=== PATIENT | female | born 1950 | race Caucasian/White ===

== ENCOUNTER 2016-06-08 14:45 | Inpatient (IN) | payer OTHER ==
[~2016-06-08] VITALS: Ht 157.5 cm; Wt 75.8 kg
--- NOTE | ~2016-06-08 | WRIGHTHP ---
[place], [place] PATIENT HISTORY AND PHYSICAL EXAM NAME: JANELLE MOORE [facility] #: [id number] UNIT #: [id number] ROOM: 406 DOCTOR: GABO CRISTOBAL MD BIRTHDATE: [birth year] DOS: 06/09/2016 HISTORY OF PRESENT ILLNESS: A 65-year-old patient, very well known to us, had routine blood work yesterday and her hemoglobin was 6.5. She was sent to the hospital for transfusion and she was admitted for overnight blood transfusion. The patient does not have any complaints of chest pains, palpitations, shortness of breath. She does not have any fever or chills. Does not have any abdominal pain, any nausea, any emesis. PAST MEDICAL HISTORY: 1. Significant for chronic microcytic anemia requiring blood transfusions periodically. 2. History of colonoscopy, last one in 2014, which showed ischemic colitis and diverticulosis. 3. SLE. 4. Benign hypertension. 5. Chronic back pain. 6. Hypothyroidism. 7. Type 2 diabetes mellitus, insulin-dependent. MEDICATIONS: Clonidine 0.3 every Saturday, aspirin 81 daily, Dexilant 60 daily, duloxetine 60 daily, [place] 5 q. 4 p.r.n., Lamictal 100 b.i.d., levothyroxine 175 mcg daily, Robaxin 750 t.i.d., quinapril 40 daily, verapamil 240 b.i.d., insulin 20 units subQ at bedtime. SOCIAL HISTORY: Nonsmoker. Does not use any alcohol. PHYSICAL EXAMINATION: GENERAL: The patient is awake and alert and oriented, in no distress this morning. VITAL SIGNS: Graphic trend shows a blood pressure of 110/70, pulse of 86, respirations 14, afebrile. HEAD AND NECK: Within normal limits. LUNGS: Clear. HEART: Regular. ABDOMEN: Obese, soft, nontender. EXTREMITIES: Without any edema. LABORATORY DATA: At the time of admission was 6.5 hemoglobin, 23.8 hematocrit, ____ 74.8, platelets 253. Comprehensive: Glucose 134, BUN and creatinine normal. Electrolytes were normal. Iron is 15. ASSESSMENT AND PLAN: 1. Chronic iron deficiency anemia with low ferritin and a low iron level as well as a low folic acid. The patient is placed on iron supplements p.o. and did receive blood transfusion. May require iron injections as an outpatient. Right now p.o. supplements will be added. Her hemoglobin has come up after the 2 units of blood transfusion and she should be able to go home. The patient has declined a colonoscopy. She has had multiple colonoscopies in the past, the last one being 11/2014. [place], [place] PATIENT HISTORY AND PHYSICAL EXAM NAME: JANELLE MOORE UNIT #: [id number] ROOM: [facility] DOCTOR: GABO CRISTOBAL MD BIRTHDATE: [birth year] 2. Benign hypertension, controlled. 3. Systemic lupus erythematosus, followed by Rheumatology. No changes made in the medicines. GABO CRISTOBAL MD CM:HISPHYS:PATIENT HISTORY AND PHYSICAL EXAMINATION 1004 1040 GABO CRISTOBAL MD 06/09/16 1040 interface
[~2016-06-08 14:45] MED LIST changes: -ASPIRIN81 M1 PO; -DULOXETINE HCL60 MG PO; -HIGH POTENCY I134 MG PO; -NATURE'S BLEND F1 MG PO
[2016-06-08] MEDS ORDERED: DULOXETINE HCL60 MG PO (15:00)
[2016-06-08 15:35] LABS: HEMATOCRIT 23.8 % (37.0-47.0); HEMOGLOBIN 6.5 g/dl (12.0-16.0); MEAN CELL VOLUME 74.8 fl (81.0-99.0); MEAN CORPUSCULAR HGB 20.4 pg (27.0-31.0); MEAN CORPUSCULAR HGB CONC 27.3 g/dl (33.0-37.0); MEAN PLATELET VOLUME 9.9 fl (9.6-12.3); PLATELET COUNT AUTOMATED 253 10*3/uL (130-400); RED BLOOD COUNT 3.18 10*6/uL (4.10-5.10); RED CELL DISTRI WIDTH 16.8 % (0-14.5); RETICULOCYTE % 2.06 % (0.50-2.50); WHITE BLOOD COUNT 9.3 10*3/uL (4.8-10.8)
[2016-06-08 15:45] LABS: PROTHROMBIN TIME 10.1 SECONDS (9.0-12.4)
[2016-06-08 15:53] LABS: ALBUMIN 3.2 gm/dl (3.1-4.5); ALKALINE PHOSPHATASE 82 U/L (45-117); BUN 12 mg/dl (7-24); C-REACTIVE PROTEIN 0.43 MG/DL (0-0.3); CARBON DIOXIDE 29 mmol/L (21-32); CHLORIDE 103 mmol/L (98-107); CPK 46 U/L (26-192); EST GLOM FILT AFRICAN AMERICAN > 60 ml/min; GLUCOSE 134 mg/dL (65-99); IRON 15 ug/dL (50-170); IRON SATURATION 3 %; MAGNESIUM 2.2 mg/dL (1.5-2.1); POTASSIUM 4.4 mmol/L (3.5-5.1); SGOT/AST 10 IU/L (3-35); SGPT/ALT 15 U/L (12-78); SODIUM 140 mmol/L (136-145); TOTAL PROTEIN 6.7 gm/dL (6.4-8.2); UIBC 433 ug/dL (110-365)
[2016-06-08 15:54] LABS: BILIRUBIN, TOTAL 0.3 mg/dl (0.2-1.0); CKMB 1.8 ng/ml (0.5-3.6)
[2016-06-08 16:08] LABS: BASOPHILS 1 % (0-1); EOSINOPHILS 1 % (1-4); METAMYELOCYTES 1 % (0-0); MICROCYTOSIS SLIGHT; NEUTROPHILS 81 % (47-73); PLATELET SUFFICIENCY NORMAL (NORMAL); POLYCHROMASIA SLIGHT; STOMATOCYTE FEW; TOTAL CELLS COUNTED 100 #CELLS
[2016-06-08 16:09] LABS: HYPOCHROMIA MODERATE
[2016-06-08 16:10] LABS: IRF 22.6 % (2.4-13.3); RET-He 17.5 pg (32.1-37.9)
[2016-06-08 16:11] LABS: TROPONIN I 0.031 ng/ml (<0.045)
[2016-06-08 16:26] LABS: FERRITIN 3.8 ng/mL (10.0-291.0); FOLIC ACID 4.3 ng/mL (>5.38)
[2016-06-08] MEDS ORDERED: ASPIRIN81 M1 PO (23:59)
[2016-06-09 07:06] LABS: HEMATOCRIT 28.2 % (37.0-47.0)
[2016-06-09 07:07] LABS: HEMOGLOBIN 8.5 g/dl (12.0-16.0)
[2016-06-09] MEDS ORDERED: NATURE'S BLEND F1 MG PO (10:05)
[2016-06-09] MEDS ORDERED: HIGH POTENCY I134 MG PO (10:05)
== END 2016-06-09 09:32 | disposition home or self-care (01) | DRG 812 ==
LOC: ED 14:45 → EDHOLD 21:38 → 4E 22:35
PROVIDERS: Emergency Medicine; Internal Medicine
PROC: 30233N1 Transfusion of Nonautologous Red Blood Cells into Peripheral Vein, Percutaneous Approach (ICD-10-PCS; principal; 2016-06-08)
DX: D50.9 Iron deficiency anemia, unspecified (principal); M32.9 Systemic lupus erythematosus, unspecified; I10 Essential (primary) hypertension; G89.29 Other chronic pain; M54.9 Dorsalgia, unspecified; E03.9 Hypothyroidism, unspecified; E11.9 Type 2 diabetes mellitus without complications; Z79.4 Long term (current) use of insulin

== ENCOUNTER → 2016-06-08 | Outpatient (CLI) | payer OTHER ==
[~2016-06-08] MED LIST: ACCUPRIL20 MG PO; ACCUPRIL40 M1 PO; ACCUPRIL40 MG PO; ACTONEL150 MG; ANASPAZ0.125 MG; ANASPAZ0.125 MG PO; APA PO; ASPIR 8181 MG; ASPIRIN81 M1 PO; ASPIRIN81 MG PO; BACTRIM DS 8001 TA1 PO; BUFFERIN LOW DO81 M1 PO; CATAPRES T0.3 MG/24 TD; CATAPRES-TTS 30.3 MG PO; CIPRO500 MG PO; CLINDAMYCIN HC300 MG PO; CYMBALTA60 MG; CYMBALTA60 MG PO; DEXILANT60 M1 PO; DEXILANT60 MG PO; DITROPAN XL5 MG PO; DULOXETINE HCL60 MG PO; FERRATE325 MG PO; FLAGYL250 MG PO; FLAGYL500 MG; FLAGYL500 MG PO; Ferrex 150150 MG PO; Flagyl500 M1 PO; HIGH POTENCY I134 MG PO; HYDROCODONE BIT1 T11 PO; HYDROCODONE PO; IMURAN50 MG; IMURAN50 MG PO; LAMICTAL100 MG PO; LANTUS100 U/ML SC; MACROBID100 M1 PO; MERREM IV1 GM IV; METHOCARBAMOL750 MG; METHOCARBAMOL750 MG PO; MICRO-K10 MEQ PO; MILLIPRED5 MG PO; NATURE'S BLEND F1 MG PO; NITROFURANTOIN PO; PLAQUENIL200 MG PO; POLY IRON PN1 TAB PO; POTASSIUM CHLO10 ME4 PO; PREDNISONE1 MG PO; PREVACID30 MG; PYRIDIUM200 MG PO; QUINAPRIL20 MG; QUINAPRIL20 MG PO; ROBAXIN-750750 MG PO; SYNTHROID,LEV175 MCG PO; THYROX; VERAPAMIL HCL240 MG PO; VERELAN240 MG PO; VICODIN ES 7501 TAB PO; VICODIN HP 6601 TAB PO; VITAMIN D50000 I3 PO
[2016-06-08 13:00] LABS: BASO # 0.1 10*3/uL (0.0-0.1); BASO % 0.8 % (0.0-1.0); EOS # 0.2 10*3/uL (0.0-0.4); EOS % 1.5 % (1.0-4.0); HEMATOCRIT 24.1 % (37.0-47.0); HEMOGLOBIN 6.6 g/dl (12.0-16.0); LYMPH # 1.3 10*3/uL (1.3-4.4); LYMPH % 13.3 % (27.0-41.0); MEAN CELL VOLUME 75.3 fl (81.0-99.0); MEAN CORPUSCULAR HGB 20.6 pg (27.0-31.0); MEAN CORPUSCULAR HGB CONC 27.4 g/dl (33.0-37.0); MEAN PLATELET VOLUME 10.6 fl (9.6-12.3); MONO # 0.6 10*3/uL (0.1-1.0); MONO % 5.7 % (3.0-9.0); NEUT # 7.7 10*3/uL (2.3-7.9); NEUT % 78.3 % (47.0-73.0); PLATELET COUNT AUTOMATED 259 10*3/uL (130-400); RED CELL DISTRI WIDTH 16.6 % (0-14.5); WHITE BLOOD COUNT 9.9 10*3/uL (4.8-10.8)
== END | disposition home or self-care (01) ==
LOC: LAB 12:15
PROVIDERS: Internal Medicine
DX: D50.9 Iron deficiency anemia, unspecified (principal)

== ENCOUNTER → 2016-08-02 | Outpatient (CLI) | payer OTHER ==
[~2016-08-02] MED LIST changes: +ASPIRIN81 M1 PO; +DULOXETINE HCL60 MG PO; +HIGH POTENCY I134 MG PO; +NATURE'S BLEND F1 MG PO
[2016-08-02 15:38] LABS: BASO # 0.1 10*3/uL (0.0-0.1); BASO % 0.7 % (0.0-1.0); EOS # 0.1 10*3/uL (0.0-0.4); EOS % 0.8 % (1.0-4.0); HEMATOCRIT 41.8 % (37.0-47.0); HEMOGLOBIN 13.2 g/dl (12.0-16.0); IG # 0.1 10*3/uL (0.0-0.1); LYMPH # 1.6 10*3/uL (1.3-4.4); LYMPH % 12.2 % (27.0-41.0); MEAN CELL VOLUME 90.7 fl (81.0-99.0); MEAN CORPUSCULAR HGB 28.6 pg (27.0-31.0); MEAN CORPUSCULAR HGB CONC 31.6 g/dl (33.0-37.0); MEAN PLATELET VOLUME 10.2 fl (9.6-12.3); MONO # 0.7 10*3/uL (0.1-1.0); MONO % 5.1 % (3.0-9.0); NEUT # 10.7 10*3/uL (2.3-7.9); NEUT % 80.7 % (47.0-73.0); PLATELET COUNT AUTOMATED 286 10*3/uL (130-400); RED BLOOD COUNT 4.61 10*6/uL (4.10-5.10); RED CELL DISTRI WIDTH 17.6 % (0-14.5); WHITE BLOOD COUNT 13.2 10*3/uL (4.8-10.8)
== END | disposition home or self-care (01) ==
LOC: LAB 15:02
PROVIDERS: Internal Medicine
DX: D50.9 Iron deficiency anemia, unspecified (principal)

== ENCOUNTER 2016-09-28 11:39 | Emergency (ER) | payer OTHER ==
[~2016-09-28] VITALS: Ht 157.4 cm; Wt 71.2 kg
[2016-09-28 12:04] VITALS: BP 126/78
[2016-09-28] MEDS ORDERED: JANUVIA100 MG PO (13:23)
[2016-09-28] MEDS ORDERED: ACCUPRIL40 M1 PO (13:25)
[2016-09-28] MEDS ORDERED: PLAQUENIL200 MG PO (13:26)
== END 2016-09-28 15:53 | disposition home or self-care (01) ==
LOC: ED 11:39
DX: S49.92XA Unspecified injury of left shoulder and upper arm, initial encounter (principal); F17.200 Nicotine dependence, unspecified, uncomplicated; Z79.82 Long term (current) use of aspirin; Z79.4 Long term (current) use of insulin; Z90.49 Acquired absence of other specified parts of digestive tract; Z79.899 Other long term (current) drug therapy; X50.9XXA Other and unspecified overexertion or strenuous movements or postures, initial encounter; Y93.89 Activity, other specified; Y92.9 Unspecified place or not applicable; Y99.9 Unspecified external cause status

== ENCOUNTER 2016-10-07 12:41 | Emergency (ER) | payer OTHER ==
[~2016-10-07] VITALS: Wt 75.3 kg
[~2016-10-07 12:41] MED LIST changes: +JANUVIA100 MG PO
[2016-10-07 12:53] VITALS: BP 159/82
[2016-10-07] MEDS ORDERED: NAPROSYN500 MG PO (14:47)
== END 2016-10-07 14:51 | disposition home or self-care (01) ==
LOC: ED 12:41
DX: M79.604 Pain in right leg (principal); M25.561 Pain in right knee; M79.1 Myalgia; M19.90 Unspecified osteoarthritis, unspecified site; F17.200 Nicotine dependence, unspecified, uncomplicated; Z79.4 Long term (current) use of insulin; Z79.82 Long term (current) use of aspirin; Z90.49 Acquired absence of other specified parts of digestive tract

== ENCOUNTER → 2016-10-10 | Outpatient (CLI) | payer OTHER ==
[~2016-10-10] MED LIST changes: +NAPROSYN500 MG PO
[2016-10-10 12:30] LABS: HEMATOCRIT 32.8 % (37.0-47.0); MEAN CELL VOLUME 88.9 fl (81.0-99.0); MEAN CORPUSCULAR HGB 27.1 pg (27.0-31.0); MEAN CORPUSCULAR HGB CONC 30.5 g/dl (33.0-37.0); MEAN PLATELET VOLUME 9.8 fl (9.6-12.3); PLATELET COUNT AUTOMATED 378 10*3/uL (130-400); RED BLOOD COUNT 3.69 10*6/uL (4.10-5.10); RED CELL DISTRI WIDTH 14.8 % (0-14.5); WHITE BLOOD COUNT 11.6 10*3/uL (4.8-10.8)
[2016-10-10 13:02] LABS: LYMPHOCYTE # 0.3 10*3/uL (1.3-4.4); METAMYELOCYTES 1 % (0-0); MONOCYTE # 0.3 10*3/uL (0.1-1.0); NEUTROPHIL # 10.8 10*3/uL (2.3-7.9); NEUTROPHILS 93 % (47-73); PLATELET SUFFICIENCY NORMAL (NORMAL); TOTAL CELLS COUNTED 100 #CELLS
== END | disposition home or self-care (01) ==
LOC: MRI 11:00 → LAB 11:12
PROVIDERS: Internal Medicine
DX: M75.102 Unspecified rotator cuff tear or rupture of left shoulder, not specified as traumatic (principal); M19.012 Primary osteoarthritis, left shoulder; M62.50 Muscle wasting and atrophy, not elsewhere classified, unspecified site; D50.9 Iron deficiency anemia, unspecified

== ENCOUNTER → 2017-03-13 | Outpatient (CLI) | payer OTHER ==
[2017-03-13 17:49] LABS: BASO # 0.1 10*3/uL (0.0-0.1); EOS # 0.3 10*3/uL (0.0-0.4); EOS % 2.8 % (1.0-4.0); HEMATOCRIT 23.1 % (37.0-47.0); LYMPH # 1.6 10*3/uL (1.3-4.4); LYMPH % 15.5 % (27.0-41.0); MEAN CELL VOLUME 73.3 fl (81.0-99.0); MEAN CORPUSCULAR HGB CONC 27.3 g/dl (33.0-37.0); MEAN PLATELET VOLUME 10.4 fl (9.6-12.3); MONO # 0.7 10*3/uL (0.1-1.0); MONO % 6.4 % (3.0-9.0); NEUT # 7.5 10*3/uL (2.3-7.9); NEUT % 73.9 % (47.0-73.0); PLATELET COUNT AUTOMATED 247 10*3/uL (130-400); RED BLOOD COUNT 3.15 10*6/uL (4.10-5.10); RED CELL DISTRI WIDTH 18.1 % (0-14.5); WHITE BLOOD COUNT 10.2 10*3/uL (4.8-10.8)
[2017-03-13 17:51] LABS: HEMOGLOBIN 6.3 g/dl (12.0-16.0)
== END | disposition home or self-care (01) ==
LOC: LAB 17:29
PROVIDERS: Internal Medicine
DX: D64.9 Anemia, unspecified (principal)

== ENCOUNTER → 2017-03-20 | Outpatient (CLI) | payer OTHER ==
[~2017-03-20] MED LIST changes: -CATAPRES-TTS 30.3 MG PO; +CATAPRES-TTS 30.3 MG T
[2017-03-20 10:34] LABS: BASO # 0.1 10*3/uL (0.0-0.1); BASO % 0.8 % (0.0-1.0); EOS # 0.6 10*3/uL (0.0-0.4); EOS % 6.8 % (1.0-4.0); HEMATOCRIT 22.4 % (37.0-47.0); LYMPH # 1.2 10*3/uL (1.3-4.4); LYMPH % 12.6 % (27.0-41.0); MEAN CELL VOLUME 73.2 fl (81.0-99.0); MEAN CORPUSCULAR HGB 19.6 pg (27.0-31.0); MEAN CORPUSCULAR HGB CONC 26.8 g/dl (33.0-37.0); MEAN PLATELET VOLUME 10.9 fl (9.6-12.3); MONO # 0.5 10*3/uL (0.1-1.0); MONO % 5.8 % (3.0-9.0); NEUT # 6.7 10*3/uL (2.3-7.9); NEUT % 73.6 % (47.0-73.0); PLATELET COUNT AUTOMATED 334 10*3/uL (130-400); RED BLOOD COUNT 3.06 10*6/uL (4.10-5.10); RED CELL DISTRI WIDTH 18.7 % (0-14.5); WHITE BLOOD COUNT 9.1 10*3/uL (4.8-10.8)
== END | disposition home or self-care (01) ==
LOC: LAB 10:15
PROVIDERS: Internal Medicine
DX: D50.9 Iron deficiency anemia, unspecified (principal)

== ENCOUNTER → 2017-03-20 | Outpatient (CLI) | payer OTHER ==
[2017-03-20 11:45] VITALS: BP 155/42
[2017-03-20 13:00] VITALS: BP 155/50
[2017-03-20 13:40] VITALS: BP 168/57
[2017-03-20 14:15] VITALS: BP 155/62
[2017-03-20 14:55] VITALS: BP 160/44
[2017-03-20 16:08] VITALS: BP 138/87
--- NOTE | 2017-03-20 17:45 | NUR ---
BLOOD TRANSFUSION COMPLETE. PATIENT TAKEN OFF FLOOR BY WHEELCHAIR. HEPLOCK DISCONTINUED.
== END | disposition home or self-care (01) ==
LOC: TRNFUSION 11:22
DX: D50.9 Iron deficiency anemia, unspecified (principal)

== ENCOUNTER 2017-03-26 16:30 | Emergency (ER) | payer OTHER ==
[~2017-03-26] VITALS: Ht 157.4 cm; Wt 72.1 kg
[2017-03-26 17:18] LABS: BASO # 0.1 10*3/uL (0.0-0.1); BASO % 1.6 % (0.0-1.0); EOS # 0.6 10*3/uL (0.0-0.4); EOS % 7.2 % (1.0-4.0); HEMATOCRIT 32.5 % (37.0-47.0); HEMOGLOBIN 9.4 g/dl (12.0-16.0); LYMPH # 1.2 10*3/uL (1.3-4.4); LYMPH % 14.5 % (27.0-41.0); MEAN CELL VOLUME 78.3 fl (81.0-99.0); MEAN CORPUSCULAR HGB 22.7 pg (27.0-31.0); MEAN CORPUSCULAR HGB CONC 28.9 g/dl (33.0-37.0); MEAN PLATELET VOLUME 10.5 fl (9.6-12.3); MONO # 0.5 10*3/uL (0.1-1.0); MONO % 6.1 % (3.0-9.0); NEUT # 5.7 10*3/uL (2.3-7.9); NEUT % 70.4 % (47.0-73.0); PLATELET COUNT AUTOMATED 325 10*3/uL (130-400); RED BLOOD COUNT 4.15 10*6/uL (4.10-5.10); RED CELL DISTRI WIDTH 20.6 % (0-14.5); WHITE BLOOD COUNT 8.1 10*3/uL (4.8-10.8)
[2017-03-26 17:32] LABS: ALBUMIN 3.3 gm/dl (3.1-4.5); ALKALINE PHOSPHATASE 103 U/L (45-117); BUN 11 mg/dl (7-24); CHLORIDE 100 mmol/L (98-107); CREATININE 0.83 mg/dL (0.55-1.02); POTASSIUM 4.4 mmol/L (3.5-5.1); SGOT/AST 11 IU/L (3-35); SGPT/ALT 11 U/L (12-78); SODIUM 136 mmol/L (136-145); TOTAL PROTEIN 7.2 gm/dL (6.4-8.2)
[2017-03-26 19:13] VITALS: BP 150/72
== END 2017-03-26 19:15 | disposition home or self-care (01) ==
LOC: ED 16:30
PROVIDERS: Nurse Practitioner Family
DX: R53.83 Other fatigue (principal); F17.200 Nicotine dependence, unspecified, uncomplicated; Z79.82 Long term (current) use of aspirin; Z79.4 Long term (current) use of insulin; Z79.899 Other long term (current) drug therapy

== ENCOUNTER → 2017-05-14 | Outpatient (CLI) | payer OTHER ==
[2017-05-14 11:56] LABS: BASO # 0.1 10*3/uL (0.0-0.1); BASO % 0.9 % (0.0-1.0); EOS # 0.2 10*3/uL (0.0-0.4); EOS % 2.5 % (1.0-4.0); HEMATOCRIT 25.6 % (37.0-47.0); HEMOGLOBIN 7.3 g/dl (12.0-16.0); LYMPH % 14.7 % (27.0-41.0); MEAN CELL VOLUME 78.3 fl (81.0-99.0); MEAN CORPUSCULAR HGB 22.3 pg (27.0-31.0); MEAN CORPUSCULAR HGB CONC 28.5 g/dl (33.0-37.0); MEAN PLATELET VOLUME 10.7 fl (9.6-12.3); MONO # 0.4 10*3/uL (0.1-1.0); MONO % 5.6 % (3.0-9.0); NEUT # 5.1 10*3/uL (2.3-7.9); NEUT % 75.3 % (47.0-73.0); PLATELET COUNT AUTOMATED 253 10*3/uL (130-400); RED BLOOD COUNT 3.27 10*6/uL (4.10-5.10); RED CELL DISTRI WIDTH 17.5 % (0-14.5); WHITE BLOOD COUNT 6.8 10*3/uL (4.8-10.8)
[2017-05-14 13:00] VITALS: BP 147/78
[2017-05-14 14:00] VITALS: BP 154/74
[2017-05-14 14:15] VITALS: BP 150/74
[2017-05-14 14:45] VITALS: BP 163/53
[2017-05-14 15:15] VITALS: BP 170/60
== END | disposition home or self-care (01) ==
LOC: TRNFUSION 11:36 → LAB 11:36
PROVIDERS: Internal Medicine
DX: D64.9 Anemia, unspecified (principal)

== ENCOUNTER 2017-08-04 16:16 | Inpatient (IN) | payer OTHER ==
[~2017-08-04] VITALS: Ht 157.4 cm; Wt 70.8 kg
--- NOTE | ~2017-08-04 | WRIGHTHP ---
[place], [place] PATIENT HISTORY AND PHYSICAL EXAM NAME: JANELLE MOORE UNIT #: [id number] ROOM: 526 DOCTOR: GABO CRISTOBAL MD BIRTHDATE: [birth year] DOS: 08/04/2017 HISTORY OF PRESENT ILLNESS: The patient is very well known to us. She was getting increasingly weak and tired, so decided to come into the Emergency Room and her blood count was pretty low and she was admitted for transfusion. She does not have any complaints of chest pains, palpitations, not have any fever or chills. She has had multiple colonoscopies and is thought to have lupus induced ischemic colitis. PAST MEDICAL HISTORY: Significant for: 1. Chronic iron deficiency anemia with multiple transfusions. 2. Benign hypertension. 3. Chronic back pain. 4. Diverticulosis. 5. Type 2 diabetes mellitus, insulin-dependent. 6. Hypothyroidism. 7. Systemic lupus erythematosus. MEDICATIONS: She is on are aspirin 81, Dexilant 60, duloxetine 60, iron 135, [place] 5, Lamictal 100 b.i.d., levothyroxine 175 daily, quinapril 40 daily, Januvia 100 daily, verapamil 80 at bedtime, insulin glargine 20 units subQ daily, clonidine 0.3 once weekly. PHYSICAL EXAMINATION: GENERAL: The patient is awake and alert and oriented. VITAL SIGNS: Graphic trend shows a pressure 154/66, pulse of 74, respirations 16, temperature 98.0. LUNGS: Clear. HEART: Regular. ABDOMEN: Soft. EXTREMITIES: Without any edema. ASSESSMENT AND PLAN: 1. Anemia with iron deficiency, precipitous drop in hematocrit, which is most likely from ischemic colitis from underlying lupus. The patient will be ordered transfusion and once hemoglobin is up, she can be discharged to home. She is declining a colonoscopy or a GI consultation. 2. Benign hypertension, controlled. [place], [place] PATIENT HISTORY AND PHYSICAL EXAM NAME: JANELLE MOORE UNIT #: [id number] ROOM: 526 DOCTOR: GABO CRISTOBAL MD BIRTHDATE: [birth year] GABO CRISTOBAL MD CM:HISPHYS:PATIENT HISTORY AND PHYSICAL EXAMINATION 2 2 GABO CRISTOBAL MD 08/05/1722 interface
[2017-08-04 16:20] VITALS: BP 162/50
[2017-08-04 17:04] LABS: HEMATOCRIT 20.2 % (37.0-47.0); MEAN CELL VOLUME 72.4 fl (81.0-99.0); MEAN CORPUSCULAR HGB 19.4 pg (27.0-31.0); MEAN CORPUSCULAR HGB CONC 26.7 g/dl (33.0-37.0); MEAN PLATELET VOLUME 10.8 fl (9.6-12.3); PLATELET COUNT AUTOMATED 233 10*3/uL (130-400); RED BLOOD COUNT 2.79 10*6/uL (4.10-5.10); RED CELL DISTRI WIDTH 18.1 % (0-14.5); WHITE BLOOD COUNT 9.2 10*3/uL (4.8-10.8)
[2017-08-04 17:07] LABS: HEMOGLOBIN 5.4 g/dl (12.0-16.0)
[2017-08-04 17:17] VITALS: BP 152/68
[2017-08-04 17:22] LABS: ALKALINE PHOSPHATASE 98 U/L (45-117); BUN 10 mg/dl (7-24); CHLORIDE 101 mmol/L (98-107); CREATININE 0.71 mg/dL (0.55-1.02); LIPASE 75 U/L (73-393); SGOT/AST 13 IU/L (3-35); SGPT/ALT 9 U/L (12-78); SODIUM 135 mmol/L (136-145); TOTAL PROTEIN 6.3 gm/dL (6.4-8.2)
[2017-08-04 17:23] LABS: TROPONIN I 0.023 ng/ml (<0.045)
[2017-08-04 17:43] LABS: BASOPHILS 2 % (0-1); TOTAL CELLS COUNTED 100 #CELLS
[2017-08-04 17:44] LABS: MICROCYTOSIS SLIGHT; PLATELET SUFFICIENCY NORMAL (NORMAL); POLYCHROMASIA SLIGHT
[2017-08-04 18:58] VITALS: BP 157/67
[2017-08-04 19:00] VITALS: BP 157/67
[2017-08-04 19:20] VITALS: BP 159/44
[2017-08-04 20:06] VITALS: BP 172/58
[2017-08-05] VITALS (9 sets, daily range): BP systolic 112–177; BP diastolic 59–73
[2017-08-05 06:43] LABS: BASO # 0.1 10*3/uL (0.0-0.1); BASO % 0.9 % (0.0-1.0); EOS % 0.1 % (1.0-4.0); LYMPH # 0.9 10*3/uL (1.3-4.4); LYMPH % 12.4 % (27.0-41.0); MEAN CELL VOLUME 73.8 fl (81.0-99.0); MEAN CORPUSCULAR HGB 21.7 pg (27.0-31.0); MEAN CORPUSCULAR HGB CONC 29.4 g/dl (33.0-37.0); MEAN PLATELET VOLUME 10.5 fl (9.6-12.3); MONO # 0.5 10*3/uL (0.1-1.0); MONO % 6.7 % (3.0-9.0); NEUT % 79.4 % (47.0-73.0); PLATELET COUNT AUTOMATED 206 10*3/uL (130-400); RED BLOOD COUNT 3.59 10*6/uL (4.10-5.10); RED CELL DISTRI WIDTH 18.4 % (0-14.5); WHITE BLOOD COUNT 7.6 10*3/uL (4.8-10.8)
[2017-08-05 06:48] LABS: HEMATOCRIT 26.5 % (37.0-47.0); HEMOGLOBIN 7.8 g/dl (12.0-16.0)
== END 2017-08-05 13:57 | disposition home or self-care (01) | DRG 546 ==
LOC: ED 16:16 → EDHOLD 18:13 → 5E 18:13
PROVIDERS: Internal Medicine; Physician Assistant
PROC: 30233N1 Transfusion of Nonautologous Red Blood Cells into Peripheral Vein, Percutaneous Approach (ICD-10-PCS; principal; 2017-08-04)
DX: M32.9 Systemic lupus erythematosus, unspecified (principal); K55.9 Vascular disorder of intestine, unspecified; E11.9 Type 2 diabetes mellitus without complications; E03.9 Hypothyroidism, unspecified; D50.9 Iron deficiency anemia, unspecified; G89.29 Other chronic pain; M54.9 Dorsalgia, unspecified; I10 Essential (primary) hypertension; Z79.82 Long term (current) use of aspirin; Z79.4 Long term (current) use of insulin; Z79.899 Other long term (current) drug therapy; Z83.3 Family history of diabetes mellitus; Z82.49 Family history of ischemic heart disease and other diseases of the circulatory system; Z90.49 Acquired absence of other specified parts of digestive tract; Z90.710 Acquired absence of both cervix and uterus

== ENCOUNTER → 2017-09-07 | Outpatient (CLI) | payer OTHER ==
[2017-09-07 17:30] LABS: BASO # 0.1 10*3/uL (0.0-0.1); BASO % 1.2 % (0.0-1.0); EOS # 0.1 10*3/uL (0.0-0.4); EOS % 1.2 % (1.0-4.0); HEMATOCRIT 32.4 % (37.0-47.0); HEMOGLOBIN 9.5 g/dl (12.0-16.0); LYMPH # 1.4 10*3/uL (1.3-4.4); LYMPH % 17.7 % (27.0-41.0); MEAN CORPUSCULAR HGB 23.8 pg (27.0-31.0); MEAN CORPUSCULAR HGB CONC 29.3 g/dl (33.0-37.0); MEAN PLATELET VOLUME 9.8 fl (9.6-12.3); MONO # 0.5 10*3/uL (0.1-1.0); NEUT # 5.6 10*3/uL (2.3-7.9); NEUT % 73.6 % (47.0-73.0); PLATELET COUNT AUTOMATED 294 10*3/uL (130-400); RED CELL DISTRI WIDTH 19.7 % (0-14.5); WHITE BLOOD COUNT 7.6 10*3/uL (4.8-10.8)
== END ==
LOC: LAB 17:13
PROVIDERS: Internal Medicine
DX: D64.9 Anemia, unspecified (principal)

== ENCOUNTER → 2017-10-03 | Outpatient (CLI) | payer OTHER ==
[2017-10-03 12:03] LABS: BASO # 0.1 10*3/uL (0.0-0.1); BASO % 1.3 % (0.0-1.0); EOS # 0.1 10*3/uL (0.0-0.4); EOS % 0.9 % (1.0-4.0); HEMATOCRIT 30.9 % (37.0-47.0); HEMOGLOBIN 8.7 g/dl (12.0-16.0); LYMPH % 12.6 % (27.0-41.0); MEAN CELL VOLUME 81.3 fl (81.0-99.0); MEAN CORPUSCULAR HGB 22.9 pg (27.0-31.0); MEAN CORPUSCULAR HGB CONC 28.2 g/dl (33.0-37.0); MEAN PLATELET VOLUME 10.2 fl (9.6-12.3); MONO # 0.4 10*3/uL (0.1-1.0); MONO % 5.6 % (3.0-9.0); NEUT # 6.3 10*3/uL (2.3-7.9); NEUT % 79.2 % (47.0-73.0); PLATELET COUNT AUTOMATED 251 10*3/uL (130-400); RED CELL DISTRI WIDTH 17.2 % (0-14.5); WHITE BLOOD COUNT 7.9 10*3/uL (4.8-10.8)
== END | disposition home or self-care (01) ==
LOC: LAB 11:49
PROVIDERS: Internal Medicine
DX: D64.9 Anemia, unspecified (principal)

== ENCOUNTER → 2017-11-19 | Outpatient (CLI) | payer OTHER ==
[~2017-11-19] MED LIST changes: -APA PO; -HYDROCODONE PO; +HYDROCODONE-AC1 EACH PO
[2017-11-19 20:44] LABS: BASO # 0.1 10*3/uL (0.0-0.1); BASO % 0.9 % (0.0-1.0); EOS % 0.3 % (1.0-4.0); HEMATOCRIT 26.5 % (37.0-47.0); HEMOGLOBIN 7.2 g/dl (12.0-16.0); LYMPH # 1.2 10*3/uL (1.3-4.4); LYMPH % 18.1 % (27.0-41.0); MEAN CELL VOLUME 75.5 fl (81.0-99.0); MEAN CORPUSCULAR HGB 20.5 pg (27.0-31.0); MEAN CORPUSCULAR HGB CONC 27.2 g/dl (33.0-37.0); MEAN PLATELET VOLUME 10.5 fl (9.6-12.3); MONO # 0.5 10*3/uL (0.1-1.0); NEUT # 4.7 10*3/uL (2.3-7.9); NEUT % 73.4 % (47.0-73.0); PLATELET COUNT AUTOMATED 241 10*3/uL (130-400); RED BLOOD COUNT 3.51 10*6/uL (4.10-5.10); RED CELL DISTRI WIDTH 16.5 % (0-14.5); WHITE BLOOD COUNT 6.5 10*3/uL (4.8-10.8)
== END | disposition home or self-care (01) ==
LOC: LAB 20:20
PROVIDERS: Internal Medicine
DX: M75.00 Adhesive capsulitis of unspecified shoulder (principal); I10 Essential (primary) hypertension; E11.9 Type 2 diabetes mellitus without complications; F17.210 Nicotine dependence, cigarettes, uncomplicated; G24.3 Spasmodic torticollis; D64.9 Anemia, unspecified; R21 Rash and other nonspecific skin eruption

== ENCOUNTER → 2017-12-18 | Outpatient (CLI) | payer OTHER ==
[2017-12-18 19:29] LABS: BASO # 0.1 10*3/uL (0.0-0.1); BASO % 1.5 % (0.0-1.0); EOS % 0.1 % (1.0-4.0); HEMATOCRIT 28.7 % (37.0-47.0); HEMOGLOBIN 8.1 g/dl (12.0-16.0); LYMPH # 1.8 10*3/uL (1.3-4.4); LYMPH % 19.6 % (27.0-41.0); MEAN CELL VOLUME 75.9 fl (81.0-99.0); MEAN CORPUSCULAR HGB 21.4 pg (27.0-31.0); MEAN CORPUSCULAR HGB CONC 28.2 g/dl (33.0-37.0); MEAN PLATELET VOLUME 10.7 fl (9.6-12.3); MONO # 0.6 10*3/uL (0.1-1.0); MONO % 6.2 % (3.0-9.0); NEUT # 6.7 10*3/uL (2.3-7.9); NEUT % 72.3 % (47.0-73.0); PLATELET COUNT AUTOMATED 285 10*3/uL (130-400); RED BLOOD COUNT 3.78 10*6/uL (4.10-5.10); RED CELL DISTRI WIDTH 19.1 % (0-14.5); WHITE BLOOD COUNT 9.2 10*3/uL (4.8-10.8)
== END | disposition home or self-care (01) ==
LOC: LAB 19:05
PROVIDERS: Internal Medicine
DX: D64.9 Anemia, unspecified (principal)

== ENCOUNTER → 2018-01-23 | Outpatient (CLI) | payer OTHER ==
[2018-01-23 17:48] LABS: BASO # 0.1 10*3/uL (0.0-0.1); BASO % 1.7 % (0.0-1.0); EOS % 0.3 % (1.0-4.0); HEMOGLOBIN 6.5 g/dl (12.0-16.0); LYMPH # 1.3 10*3/uL (1.3-4.4); LYMPH % 21.4 % (27.0-41.0); MEAN CORPUSCULAR HGB 19.8 pg (27.0-31.0); MEAN PLATELET VOLUME 10.9 fl (9.6-12.3); MONO # 0.5 10*3/uL (0.1-1.0); MONO % 7.9 % (3.0-9.0); NEUT % 68.4 % (47.0-73.0); PLATELET COUNT AUTOMATED 223 10*3/uL (130-400); RED BLOOD COUNT 3.29 10*6/uL (4.10-5.10); RED CELL DISTRI WIDTH 17.8 % (0-14.5); WHITE BLOOD COUNT 5.8 10*3/uL (4.8-10.8)
== END | disposition home or self-care (01) ==
LOC: LAB 17:29
PROVIDERS: Internal Medicine
DX: D50.9 Iron deficiency anemia, unspecified (principal)

== ENCOUNTER 2018-01-27 10:05 | Inpatient (IN) | payer OTHER ==
[~2018-01-27] VITALS: Ht 160 cm; Wt 69.5 kg
--- NOTE | ~2018-01-27 | WRIGHTHP ---
[place], [place] PATIENT HISTORY AND PHYSICAL EXAM [id number] UNIT #: [id number] ROOM: 408 DOCTOR: GABO CRISTOBAL MD BIRTHDATE: [birth year] DOS: 01/27/2018 HISTORY OF PRESENT ILLNESS: This patient is very well known to us, 67-year-old, who had routine blood work and hemoglobin was 6.5. This was done on the . The patient was advised admission because of the precipitous drop in hematocrit. The patient does not have any bleeding per rectum. Denies having any blood in his stools or black stools. Denies having any chest pains or palpitations. PAST MEDICAL HISTORY: Significant for: 1. Chronic anemia, iron deficiency. 2. History of ischemic colitis, diverticulosis, last colonoscopy in 2014. 3. Benign hypertension. 4. Systemic lupus erythematosus. 5. Chronic back pain. 6. Hypothyroidism. 7. Type 2 diabetes mellitus. MEDICATIONS: She is on Dexilant 60 daily, aspirin 81 daily, duloxetine 60 daily, iron 134 daily, [place] 1 tablet t.i.d., Lamictal 100 b.i.d., levothyroxine 175 mcg daily, quinapril 40 daily in the evening and 20 in the morning, Januvia 100 daily, verapamil 480 at bedtime, insulin 20 units subcutaneous at 1700 hours, clonidine 0.3 once on Sundays. SOCIAL HISTORY: Nonsmoker, does not use any alcohol. Lives at home. PHYSICAL EXAMINATION: GENERAL: She is awake and alert and oriented. VITAL SIGNS: Graphic trend shows blood pressure of 110/70, pulse of 76, respirations 14, afebrile. LUNGS: Clear. HEART: Regular. ABDOMEN: Obese, soft, nontender. EXTREMITIES: Without any edema. ASSESSMENT AND PLAN: 1. Iron deficiency anemia, precipitous drop in hematocrit. Hemoglobin did come down to 6.3. The patient was admitted, transfusion ordered, 2 units of blood transfusion were given. Before that iron binding capacity, iron levels and ferritin were ordered. The ferritin and iron are quite low and the patient will require iron infusions as an outpatient, which we will be arranging for. One dose of IV iron will be given today before discharge. Hemoglobin has come up to 9.2 after 2 units of blood transfusion. The patient is stable and could go home today. The patient has declined any GI evaluation. 2. Systemic lupus erythematosus, on disease modifying agents, stable. This most likely is causing vasculitis, resulting in ischemic colitis and chronic anemia. 3. Benign hypertension, controlled. [place], [place] PATIENT HISTORY AND PHYSICAL EXAM NAME: JANELLE MOORE UNIT #: [id number] ROOM: [facility] DOCTOR: GABO CRISTOBAL MD BIRTHDATE: [birth year] GABO CRISTOBAL MD CM:HISPHYS:PATIENT HISTORY AND PHYSICAL EXAMINATION 4 0 GABO CRISTOBAL MD 01/28/18830 interface
[2018-01-27 10:20] VITALS: BP 138/74
[2018-01-27 11:38] LABS: BASO # 0.1 10*3/uL (0.0-0.1); BASO % 2.4 % (0.0-1.0); EOS % 0.2 % (1.0-4.0); HEMATOCRIT 23.6 % (37.0-47.0); HEMOGLOBIN 6.3 g/dl (12.0-16.0); LYMPH # 0.9 10*3/uL (1.3-4.4); LYMPH % 17.8 % (27.0-41.0); MEAN CELL VOLUME 75.9 fl (81.0-99.0); MEAN CORPUSCULAR HGB 20.3 pg (27.0-31.0); MEAN CORPUSCULAR HGB CONC 26.7 g/dl (33.0-37.0); MEAN PLATELET VOLUME 10.9 fl (9.6-12.3); MONO # 0.3 10*3/uL (0.1-1.0); MONO % 6.7 % (3.0-9.0); NEUT # 3.6 10*3/uL (2.3-7.9); NEUT % 72.5 % (47.0-73.0); PLATELET COUNT AUTOMATED 198 10*3/uL (130-400); RED BLOOD COUNT 3.11 10*6/uL (4.10-5.10); RED CELL DISTRI WIDTH 17.8 % (0-14.5); WHITE BLOOD COUNT 4.9 10*3/uL (4.8-10.8)
[2018-01-27 11:58] LABS: IRON 12 ug/dL (50-170); TOTAL IRON BINDING CAPACITY 459 ug/dl (250-450)
[2018-01-27 12:00] VITALS: BP 174/74
[2018-01-27 12:44] LABS: FERRITIN 4.1 ng/mL (10.0-291.0)
[2018-01-27 16:00] VITALS: BP 163/62
[2018-01-27 20:00] VITALS: BP 164/78
[2018-01-27 22:00] VITALS: BP 158/66
[2018-01-28] VITALS: BP 172/64; BP 186/70
[2018-01-28 07:01] LABS: BASO # 0.1 10*3/uL (0.0-0.1); BASO % 1.5 % (0.0-1.0); EOS % 0.3 % (1.0-4.0); LYMPH % 12.3 % (27.0-41.0); MEAN CELL VOLUME 76.7 fl (81.0-99.0); MEAN CORPUSCULAR HGB 22.8 pg (27.0-31.0); MEAN CORPUSCULAR HGB CONC 29.7 g/dl (33.0-37.0); MEAN PLATELET VOLUME 11.3 fl (9.6-12.3); MONO # 0.5 10*3/uL (0.1-1.0); MONO % 6.3 % (3.0-9.0); NEUT # 6.2 10*3/uL (2.3-7.9); NEUT % 79.1 % (47.0-73.0); PLATELET COUNT AUTOMATED 190 10*3/uL (130-400); RED BLOOD COUNT 4.04 10*6/uL (4.10-5.10); RED CELL DISTRI WIDTH 17.4 % (0-14.5); WHITE BLOOD COUNT 7.8 10*3/uL (4.8-10.8)
[2018-01-28 07:11] LABS: HEMOGLOBIN 9.2 g/dl (12.0-16.0)
[2018-01-28 08:00] VITALS: BP 160/80
== END 2018-01-28 10:37 | disposition home or self-care (01) | DRG 812 ==
LOC: 4E 10:05
PROVIDERS: Internal Medicine
PROC: 30233N1 Transfusion of Nonautologous Red Blood Cells into Peripheral Vein, Percutaneous Approach (ICD-10-PCS; principal; 2018-01-27)
DX: D50.9 Iron deficiency anemia, unspecified (principal); M31.8 Other specified necrotizing vasculopathies; K55.9 Vascular disorder of intestine, unspecified; M32.9 Systemic lupus erythematosus, unspecified; I10 Essential (primary) hypertension; G89.29 Other chronic pain; M54.9 Dorsalgia, unspecified; K57.90 Diverticulosis of intestine, part unspecified, without perforation or abscess without bleeding; E03.9 Hypothyroidism, unspecified; E11.9 Type 2 diabetes mellitus without complications

== ENCOUNTER → 2018-03-04 | Outpatient (CLI) | payer OTHER ==
[2018-03-04 10:56] LABS: BASO # 0.1 10*3/uL (0.0-0.1); BASO % 1.4 % (0.0-1.0); EOS # 0.2 10*3/uL (0.0-0.4); EOS % 2.7 % (1.0-4.0); HEMATOCRIT 39.6 % (37.0-47.0); HEMOGLOBIN 11.8 g/dl (12.0-16.0); LYMPH # 1.5 10*3/uL (1.3-4.4); MEAN CORPUSCULAR HGB 26.8 pg (27.0-31.0); MEAN CORPUSCULAR HGB CONC 29.8 g/dl (33.0-37.0); MONO # 0.6 10*3/uL (0.1-1.0); MONO % 7.8 % (3.0-9.0); NEUT # 4.7 10*3/uL (2.3-7.9); NEUT % 66.8 % (47.0-73.0); PLATELET COUNT AUTOMATED 229 10*3/uL (130-400); RED CELL DISTRI WIDTH 23.4 % (0-14.5); WHITE BLOOD COUNT 7.1 10*3/uL (4.8-10.8)
== END | disposition home or self-care (01) ==
LOC: LAB 10:18
PROVIDERS: Internal Medicine
DX: D64.9 Anemia, unspecified (principal)

== ENCOUNTER 2018-08-25 21:28 | Emergency (ER) | payer OTHER ==
[~2018-08-25] VITALS: Ht 157.4 cm; Wt 69.9 kg
[2018-08-25 21:29] VITALS: BP 238/90
[2018-08-26] MEDS ORDERED: Orphenadrine C100 MG PO (00:25)
[2018-08-26] MEDS ORDERED: NORCO 5-325 TA1 EACH PO (00:25)
[2018-08-26] MEDS ORDERED: Motrin,Rufen800 MG PO (00:25)
[2018-09-02] MEDS ORDERED: HYDRALAZINE HYD50 MG PO (19:55)
[2018-09-02] MEDS ORDERED: METOPROLOL SUC100 M1 PO (19:56)
[2018-09-02] MEDS ORDERED: PLAQUENIL200 MG PO (19:58)
== END 2018-08-26 00:22 | disposition home or self-care (01) ==
LOC: ED 21:28
DX: S00.83XA Contusion of other part of head, initial encounter (principal); M48.02 Spinal stenosis, cervical region; Z90.710 Acquired absence of both cervix and uterus; Z98.890 Other specified postprocedural states; Z90.49 Acquired absence of other specified parts of digestive tract; Z79.899 Other long term (current) drug therapy; Z79.4 Long term (current) use of insulin; Z79.82 Long term (current) use of aspirin; G89.29 Other chronic pain; W18.49XA Other slipping, tripping and stumbling without falling, initial encounter; Y93.89 Activity, other specified; Y92.89 Other specified places as the place of occurrence of the external cause; Y99.9 Unspecified external cause status

== ENCOUNTER → 2018-12-19 | Outpatient (CLI) | payer OTHER ==
[~2018-12-19] MED LIST changes: +CARVEDILOL12.5 MG PO; +CLONIDINE HCL0.1 MG PO; +FEROSUL325 MG PO; +HYDRALAZINE HYD50 MG PO; +METOPROLOL SUC100 M1 PO; +Motrin,Rufen800 MG PO; +NORCO 5-325 TA1 EACH PO; +NORVASC5 MG PO; +Orphenadrine C100 MG PO; +PANTOPRAZOLE SO40 MG PO; +TOPROL XL100 MG PO; +VERAPAMIL HCL240 M1 PO
[2018-12-19 14:14] LABS: BASO # 0.1 10*3/uL (0.0-0.1); BASO % 1.9 % (0.0-1.0); EOS # 0.1 10*3/uL (0.0-0.4); HEMATOCRIT 26.2 % (37.0-47.0); HEMOGLOBIN 7.2 g/dl (12.0-16.0); LYMPH % 16.9 % (27.0-41.0); MEAN CELL VOLUME 80.1 fl (81.0-99.0); MEAN CORPUSCULAR HGB CONC 27.5 g/dl (33.0-37.0); MEAN PLATELET VOLUME 10.8 fl (9.6-12.3); MONO # 0.5 10*3/uL (0.1-1.0); MONO % 8.1 % (3.0-9.0); NEUT # 4.3 10*3/uL (2.3-7.9); NEUT % 71.6 % (47.0-73.0); PLATELET COUNT AUTOMATED 248 10*3/uL (130-400); RED BLOOD COUNT 3.27 10*6/uL (4.10-5.10); RED CELL DISTRI WIDTH 16.6 % (0-14.5); WHITE BLOOD COUNT 5.9 10*3/uL (4.8-10.8)
[2018-12-19 14:47] LABS: ALBUMIN 3.5 gm/dl (3.1-4.5); BUN 11 mg/dl (7-24); CHLORIDE 103 mmol/L (98-107); CHOLESTEROL 134 mg/dL (<200); CREATININE 0.74 mg/dL (0.55-1.02); POTASSIUM 3.8 mmol/L (3.5-5.1); SGOT/AST 13 IU/L (3-35); SGPT/ALT 12 U/L (12-78); SODIUM 136 mmol/L (136-145); TOTAL PROTEIN 6.7 gm/dL (6.4-8.2); TRIGLYCERIDES 75 mg/dl (<150); VLDL CHOLESTEROL 15 mg/dL (6-40)
[2018-12-19 14:53] LABS: ALKALINE PHOSPHATASE 73 U/L (45-117); FREE T4 1.18 ng/dl (0.76-1.46); HDL CHOLESTEROL 43 mg/dl (40-60); LDL CHOLESTEROL 76 mg/dL (9-159)
[2018-12-19 15:57] LABS: VITAMIN D, 25-HYDROXY 13.7 ng/mL (30-100)
== END | disposition home or self-care (01) ==
LOC: LAB 13:32
PROVIDERS: Internal Medicine
DX: I10 Essential (primary) hypertension (principal); E11.9 Type 2 diabetes mellitus without complications; E78.2 Mixed hyperlipidemia; E55.9 Vitamin D deficiency, unspecified; D64.9 Anemia, unspecified

== ENCOUNTER 2019-02-04 18:01 | Inpatient (IN) | payer OTHER ==
[~2019-02-04] VITALS: Ht 157.5 cm; Wt 73.6 kg
[2019-02-04] VITALS (13 sets, daily range): BP systolic 116–154; BP diastolic 31–76
--- NOTE | ~2019-02-04 | O ---
[place], [place] OPERATIVE NOTE NAME: JANELLE MOORE UNIT #: [id number] ROOM: 425 DOCTOR: JEAN PAUL MOSES MD BIRTHDATE: [birth year] DOS: 02/06/2019 INDICATIONS: The patient has presented with chief complaint of profound anemia, status post multiple transfusions, history of aspirin and history of ibuprofen intake. PROCEDURE: Today's procedure part of investigation is panendoscopy and colonoscopy. PREMEDICATION: Propofol. SCOPE: Olympus forward-viewing gastroscope Q10 video. REPORT: After putting the patient in left lateral position and application of lubricant to the scope, scope was introduced. Thereafter, under direct visualization, advanced through the length of esophagus. Small hiatal hernia seen, gastritis noticed. Antral biopsy obtained. Duodenal bulb, second and third part within normal limit. IMPRESSION: Gastritis, small hiatal hernia. No source of active bleeding. We will proceed with colonoscopy. PROCEDURE #2. The patient has presented with chief complaint of profound anemia, hemoglobin of 5, status post transfusion, iron deficiency. PROCEDURE: Today's procedure part of investigation is colonoscopy. PREMEDICATION: Propofol. SCOPE: Olympus forward-viewing colonoscope 10L video. REPORT: After putting the patient in left lateral position and application of lubricant to the scope, the scope was introduced. Thereafter, under direct visualization, advanced through the length of colon without difficulty. Diverticulosis seen particularly expressed in sigmoid colon, a sessile polypoid lesion in sigmoid colon with piecemeal polypectomy removed. Base of the cecum explored, appendiceal orifice identified and photographed. Air was suctioned out. The patient was extubated, tolerated the procedure well. IMPRESSION: Diverticulosis, sessile colonic polyp. No source of active bleeding was noticed. PLAN AND DISCUSSION: I am going to obtain a CT scan of the abdomen and pelvis in this geriatric patient. The last CT scan of the abdomen being in 2014 and assuring that there is no occult malignancy. [place], [place] OPERATIVE NOTE NAME: JANELLE MOORE UNIT #: [id number] ROOM: 425 DOCTOR: JEAN PAUL MOSES MD BIRTHDATE: [birth year] JEAN PAUL MOSES MD CM:OPRECORD:OPERATIVE NOTE 1050 42 JEAN PAUL MOSES MD 02/06/191943 interface
--- NOTE | ~2019-02-04 | DS ---
[place], [place] DISCHARGE SUMMARY [id number] UN[facility] #: [id number] ROOM: 425 DOCTOR: GABO CRISTOBAL MD BIRTHDATE: [birth year] DOS: 02/07/2019 DISCHARGE DIAGNOSES: 1. Precipitous drop in hematocrit. 2. Endoscopy showing gastritis. 3. Colonoscopy with polyp removal. 4. CT scan of the abdomen and pelvis showing diverticulosis. 5. Iron-deficiency anemia, on infusions. 6. Benign hypertension, poorly controlled. 7. Systemic lupus erythematosus with vasculitis. 8. Chronic back pain. 9. Hypothyroidism. 10. Major depression, mild, recurrent. 11. Type 2 diabetes mellitus, insulin-dependent. 12. Acute gastritis. 13. Diverticulosis. DISCHARGE MEDICATIONS: This patient's medications are Norvasc 5 mg daily, quinapril 40 daily, clonidine 0.3 once a week, iron 325 daily, Lamictal 100 b.i.d., levothyroxine 150 mcg daily, Lantus 20 units subcutaneous at 5:00 p.m., duloxetine 60 daily, Januvia 100 daily, amlodipine 5 daily, verapamil 240 mg two tablets daily, Plaquenil 200 b.i.d., Dexilant 60 daily. HOSPITAL COURSE: This patient is very well known to us. She comes into the ER after her CBC was drawn and found to be low at 5.3. By the time she arrived, her hemoglobin was much lower. She was admitted to the ICU and was given transfusion. Iron ferritin was checked, which was very low. She was also started on iron infusions. The patient is overall stable and improving after that. Dr. Loco was consulted. At this time, the patient agreed to have endoscopy and colonoscopy. This was performed. Findings are as above. CT of the abdomen and pelvis was done, which was negative other than diverticulosis. The patient is overall stable and improved and is not having any complaints. There have not been any active bleed during the admission. Hemoccults were positive. The patient is stable. H and H remained stable. She has received 2 iron infusions here and will continue iron infusions as an outpatient. Discharge planning has been arranged for today. She does have poorly controlled hypertension and further adjustments in blood pressure medications were made. Her blood sugars have been very well controlled on the current dose of medicines. [place], [place] DISCHARGE SUMMARY NAME: JANELLE MOORE UNIT #: [id number] ROOM: 425 DOCTOR: GABO CRISTOBAL MD BIRTHDATE: [birth year] GABO CRISTOBAL MD CM:DISCHDOROTHY 6 GABO CRISTOBAL MD 02/07/19 0854 interface
--- NOTE | ~2019-02-04 | CON ---
[place], [place] REPORT OF CONSULTATION NAME: JANELLE MOORE UNIT #: [id number] ROOM: 425 DOCTOR: JEAN PAUL MOSES MD BIRTHDATE: [birth year] DOS: 02/06/2019 GASTROENDOSCOPIC CONSULTATION REPORT HISTORY OF PRESENT ILLNESS: This is a 68-year-old patient who has presented with a chief complaint of profound anemia, tiredness, H and H of 5 and 20. After investigation INR has been 1.1. Lactic acid was normal. Comprehensive metabolic panel; GFR greater than 60. Chemistry normal. Lipase normal. C-reactive protein 1.3. Troponin was normal. MRSA negative. Iron studies 27 low, ferritin was 13, normal. PAST MEDICAL HISTORY: Associated iron deficiency anemia, systemic hypertension, diabetes mellitus, hypothyroidism, systemic lupus erythematosus, chronic pain. SOCIAL HISTORY: Half pack smoker and nonalcohol consumer. PAST SURGICAL HISTORY: None reported. MEDICATION: List has been reviewed. ALLERGIES: No known medication. FAMILY HISTORY: Noncontributory. REVIEW OF SYSTEMS: HEENT: Denies double vision, blurred vision. RESPIRATORY: Denies acute shortness of breath. CARDIOVASCULAR: Denies chest pain. DIGESTIVE SYSTEM: No hematemesis, no hematochezia. PHYSICAL EXAMINATION: VITAL SIGNS: Stable. HEENT: Head normocephalic, nontraumatic. Mouth and buccal mucosa benign. NECK: Supple, no thyromegaly, no cervical lymphadenopathy. CHEST: Symmetric anatomy, equal expansion. No wheeze, no rhonchi. HEART: Normal sinus rhythm, no gallop, no murmur. ABDOMEN: Soft. No hepato-organomegaly. Bowel sounds present. No pulsatile mass. EXTREMITIES: No cyanosis, no pedal edema. NEUROLOGIC: Alert, oriented to time, place, person. IMPRESSION: Profound anemia, hemoglobin of 5, status post multi-transfusion, improvement of the latest hemoglobin and hematocrit H to 9.8 and 33, platelets normal. PLAN AND DISCUSSION: We are going to proceed with EGD and colonoscopy. [place], [place] REPORT OF CONSULTATION NAME: JANELLE MOORE UNIT #: [id number] ROOM: 425 DOCTOR: JEAN PAUL MOSES MD BIRTHDATE: [birth year] JEAN PAUL MOSES MD CM:CONSTR:REPORT OF CONSULTATION 1050 02/06/19 1937 interface
--- NOTE | ~2019-02-04 | WRIGHTHP ---
[place], [place] PATIENT HISTORY AND PHYSICAL EXAM [id number] UNIT #: [id number] ROOM: [facility] DOCTOR: GABO CRISTOBAL MD BIRTHDATE: [birth year] DOS: 02/04/2019 HISTORY OF PRESENT ILLNESS: This patient is very well known to us. She felt that her blood count was dropping. She was getting a little short of breath and weaker. CBC was ordered as an outpatient and came back showing a 5.4 hemoglobin. The patient was advised to come into the Emergency Room. She was evaluated in the ER and was admitted. Heme-positive stools were noted. She denies having any chest pains, palpitations, does not have any fever or chills, does not have any abdominal pain. No nausea. Emesis this morning. PAST MEDICAL HISTORY: Significant for: 1. Chronic iron deficiency anemia with multiple admissions for drop in hemoglobin. Last one was August 2018. 2. Benign hypertension. 3. Type 2 diabetes mellitus. 4. Hypothyroidism. 5. Systemic lupus erythematosus. 6. Chronic pain. MEDICATIONS: She is on are hydralazine 50 t.i.d., quinapril 40 daily, Januvia 100 daily, Lantus 20 units subQ, clonidine 0.3 once a week, metoprolol 100 daily, levothyroxine 150 mcg daily, Lamictal 100 b.i.d., Plaquenil 200 daily, duloxetine 60 daily, Dexilant 60 daily. SOCIAL HISTORY: Smoker of half a pack of cigarettes a day. Denies using any alcohol. PHYSICAL EXAMINATION: GENERAL: She is awake and alert and oriented. VITAL SIGNS: Graphic trend shows a pressure of 182/52, pulse of 52, respirations 20, temperature 98.2. LUNGS: Diminished breath sounds. No wheezes, rales or rhonchi heard. HEART: Regular. ABDOMEN: Obese, soft, nontender. EXTREMITIES: Without any edema. LABORATORY DATA: Lactic acid was normal. Comprehensive glucose 120, BUN 12, creatinine 0.81, protein 6.4, albumin 3.3, lipase is 49. ASSESSMENT AND PLAN: 1. Precipitous drop in hematocrit. She received 2 units of blood transfusion. Unfortunately, blood transfusion was ordered before I could get the iron and ferritin level. We will do it for tomorrow. May require iron infusion. 2. Systemic lupus erythematosus vasculitis with possible gastrointestinal bleed. The patient has had endoscopy and colonoscopies in the past, but refuses to have another one after much conversation this morning. She has agreed to have another colonoscopy. Dr. Loco will be consulted. The last colonoscopy that we have here is in 2014. At that time, she had ischemic colitis, so we will arrange that for tomorrow. 3. Benign hypertension, controlled. [place], [place] PATIENT HISTORY AND PHYSICAL EXAM NAME: JANELLE MOORE UNIT #: [id number] ROOM: [facility] DOCTOR: GABO CRISTOBAL MD BIRTHDATE: [birth year] 4. Lupus erythematosus, on disease modifying agents, which are being continued. GABO CRISTOBAL MD CM:HISPHYS:PATIENT HISTORY AND PHYSICAL EXAMINATION 0844 6 GABO CRISTOBAL MD 02/05/1918 interface
--- NOTE | ~2019-02-04 | EKG ---
[place], [place] ELECTROCARDIOGRAM REPORT NAME: JANELLE MOORE UNIT #: [id number] ROOM: [facility] DOCTOR: JULIETA DRAFT REPORT BIRTHDATE: [birth year] [facility] Test Date: 2019-02-04 Test Time: 18:46:19 Pat Name: JANELLE MOORE Department: Room: [facility] Gender: F Claim Analyst: : 1950 Requested By: TYREE SUTTON Order Number: [id number] Reading MD: Michelle Hoover MD Measurements Intervals [place] Rate: 50 P: -45 ME: 218 QRS: 65 QRSD: 155 T: 57 QT: 547 QTc: 499 Interpretive Statements Sinus or ectopic atrial rhythm Borderline prolonged ME interval Right bundle branch block Baseline wander in lead(s) V4 Compared to ECG 09/02/2018 16:04:29 No significant changes Electronically Signed On 02-05-2019 8:09:23 PST by Michelle Hoover MD CM:EKGRPT:ELECTROCARDIOGRAM REPORT [id number] TYREE ARSHAD DRAFT REPORT TYREE SUTTON DO
--- NOTE | ~2019-02-04 | PR ---
[place], [place] PROGRESS NOTE NAME: JANELLE MOORE UNIT #: [id number] ROOM: 425 DOCTOR: GABO CRISTOBAL MD BIRTHDATE: [birth year] DOS: SUBJECTIVE: The patient is about the same, does not have any new complaints. Appreciate Dr. Loco's input. Endoscopy and colonoscopy reviewed. OBJECTIVE: VITAL SIGNS: Pressure is 153/43, pulse of 79, respirations 18, temperature 98.2. LUNGS: Clear. HEART: Regular. ABDOMEN: Obese, soft, nontender. EXTREMITIES: Without any edema. Hypokalemia noted. BMP: Glucose 131, BUN 3, creatinine 0.74, sodium 138, potassium 3.0. White cell count 7.6, hemoglobin is 9.5. CT of the abdomen and pelvis with no pathology other than hiatal hernia and diverticulosis. Small polyp removed from the colon and gastritis noticed on the endoscopy. ASSESSMENT AND PLAN: 1. Hypokalemia. Supplementation ordered. 2. Acute gastritis. Already on proton-pump inhibitors. 3. Polyp removal. Awaiting pathology. 4. Precipitous drop in hematocrit. Hemoglobin is stable. 5. Iron deficiency anemia, on iron intravenous. Plan to discharge on p.o. iron supplements. May require a Hematology consultation. The patient has been refusing in the past. 6. Benign hypertension, controlled this morning. Further adjustments in meds to be made before discharge. GABO CRISTOBAL MD CM:PNTRANS 6 GABO CRISTOBAL MD 02/07/19 0838 interface
--- NOTE | ~2019-02-04 | PR ---
[place], [place] PROGRESS NOTE NAME: JANELLE MOORE UNIT #: [id number] ROOM: 425 DOCTOR: GABO CRISTOBAL MD BIRTHDATE: [birth year] DOS: 02/06/2019 SUBJECTIVE: The patient is resting, is not having any complaints. IV fluids have been discontinued because it was infiltrated. OBJECTIVE: VITAL SIGNS: Blood pressure is 139/58, pulse of 49, respirations 20, temperature 98.5. LUNGS: Clear. HEART: Regular. ABDOMEN: Obese, soft, nontender. EXTREMITIES: Without any edema. LABORATORY DATA: MRSA of nares negative. Iron and ferritin were pretty low. Iron is 27, ferritin is 13.6. ASSESSMENT AND PLAN: 1. Precipitous drop in hematocrit, status post transfusion, hemoglobin is up to 9.8. She is undergoing endoscopy and colonoscopy today. 2. Iron deficiency anemia. Iron infusions will be ordered after the scopes over, the patient will be started on iron supplements p.o. 3. Benign hypertension, controlled. She is bradycardic, so I have discontinued the beta blockers. 4. Systemic lupus erythematosus with vasculitis, possibly causing ischemic colitis and bleed, with history of colonoscopy in 2014. GABO CRISTOBAL MD CM:PNTRANS 5 GABO CRISTOBAL MD 02/06/1935 interface
[~2019-02-04 18:01] MED LIST changes: -CARVEDILOL12.5 MG PO; -CLONIDINE HCL0.1 MG PO; -FEROSUL325 MG PO; -NORVASC5 MG PO; -PANTOPRAZOLE SO40 MG PO; -TOPROL XL100 MG PO; -VERAPAMIL HCL240 M1 PO
[2019-02-04 18:57] LABS: MEAN CELL VOLUME 76.1 fl (81.0-99.0); MEAN CORPUSCULAR HGB 19.2 pg (27.0-31.0); MEAN CORPUSCULAR HGB CONC 25.3 g/dl (33.0-37.0); MEAN PLATELET VOLUME 11.9 fl (9.6-12.3); PLATELET COUNT AUTOMATED 175 10*3/uL (130-400); RED BLOOD COUNT 2.55 10*6/uL (4.10-5.10); RED CELL DISTRI WIDTH 18.5 % (0-14.5); WHITE BLOOD COUNT 6.9 10*3/uL (4.8-10.8)
[2019-02-04 19:01] LABS: HEMOGLOBIN 4.9 g/dl (12.0-16.0)
--- NOTE | 2019-02-04 19:01 | NUR ---
NURSE TO NURSE REPORT GIVEN TO THIS RN.LAB CALLED WITH CRITICAL VALUES OF H&H 4.9 AND 19.4.
[2019-02-04 19:02] LABS: HEMATOCRIT 19.4 % (37.0-47.0)
[2019-02-04] MEDS ORDERED: CARVEDILOL12.5 MG PO (19:05)
[2019-02-04] MEDS ORDERED: PANTOPRAZOLE SO40 MG PO (19:06)
[2019-02-04] MEDS ORDERED: QUINAPRIL20 MG PO (19:07)
[2019-02-04 19:09] LABS: ACT PARTIAL THROMBO TIME 23.4 SECONDS (20.0-32.1)
[2019-02-04 19:19] LABS: ALBUMIN 3.3 gm/dl (3.1-4.5); ALKALINE PHOSPHATASE 80 U/L (45-117); BUN 11 mg/dl (7-24); CHLORIDE 104 mmol/L (98-107); CREATININE 0.81 mg/dL (0.55-1.02); LIPASE 49 U/L (73-393); POTASSIUM 3.9 mmol/L (3.5-5.1); SGOT/AST 17 IU/L (3-35); SGPT/ALT 16 U/L (12-78); SODIUM 135 mmol/L (136-145); TOTAL PROTEIN 6.4 gm/dL (6.4-8.2); TROPONIN I 0.038 ng/ml (<0.045)
[2019-02-04 19:42] LABS: BASOPHILS 1 % (0-1); POLYCHROMASIA SLIGHT; TOTAL CELLS COUNTED 100 #CELLS
[2019-02-04 19:43] LABS: MICROCYTOSIS SLIGHT; OVALOCYTES FEW; PLATELET SUFFICIENCY NORMAL (NORMAL); STOMATOCYTE FEW
--- NOTE | 2019-02-04 20:36 | NUR ---
INFUSION OF LUNIT OF PRBC INITIATED @ 2031.
--- NOTE | 2019-02-04 20:45 | NUR ---
MRSA SWAB COLLECTED,LABELED AND SENT TO LAB.
--- NOTE | 2019-02-04 20:53 | NUR ---
PT VITALS REASSESSED.DENIES ANY REACTION SYMPTOMS AT THIS TIME.TOLERATING BLOOD TRANSFUSIOIN WELL.
--- NOTE | 2019-02-04 21:00 | NUR ---
A 68, admitted to [facility], under the services of GABO Avalos MD with a diagnosis of anemia. Chief complaint is pt felt like she had a low blood count. Patient arrived via stretcher from ER. Monitor applied. Initial assessment completed. Vital signs taken and recorded. GABO AVALOS MD notified of admission to the unit. Orders received. See assessment for past medical history, medications and allergies. Patient and/or family oriented to unit. [facility] visitation policy reviewed. Clothing/patient valuable form completed. JYOTI MALLOY
--- NOTE | 2019-02-04 21:00 | NUR ---
MEDS NOT RECONCILED, PT DOES NOT KNOW NAMES HOLD ALL HOME MEDS FOR NOW PER SUSU
[2019-02-05] VITALS (11 sets, daily range): BP systolic 53–188; BP diastolic 24–96
[2019-02-05 05:50] LABS: ALBUMIN 3.1 gm/dl (3.1-4.5); ALKALINE PHOSPHATASE 82 U/L (45-117); BUN 8 mg/dl (7-24); CHLORIDE 107 mmol/L (98-107); CREATININE 0.79 mg/dL (0.55-1.02); POTASSIUM 3.8 mmol/L (3.5-5.1); SGOT/AST 14 IU/L (3-35); SGPT/ALT 17 U/L (12-78); SODIUM 138 mmol/L (136-145); TOTAL PROTEIN 6.2 gm/dL (6.4-8.2)
[2019-02-05 06:23] LABS: HEMATOCRIT 25.9 % (37.0-47.0); HEMOGLOBIN 7.5 g/dl (12.0-16.0); MEAN CORPUSCULAR HGB 22.6 pg (27.0-31.0); MEAN PLATELET VOLUME 12.2 fl (9.6-12.3); NUCLEATED RED BLOOD CELL 0.2 % (0.0-0.0); PLATELET COUNT AUTOMATED 177 10*3/uL (130-400); RED BLOOD COUNT 3.32 10*6/uL (4.10-5.10); RED CELL DISTRI WIDTH 18.1 % (0-14.5)
--- NOTE | 2019-02-05 07:02 | NUR ---
MESSAGE LEFT ON DR MIR CELL RETO NEW CONSULT
[2019-02-05 07:07] LABS: ATYPICAL LYMPHS 1 % (0-0); BASOPHILS 2 % (0-1); PLATELET SUFFICIENCY NORMAL (NORMAL); POLYCHROMASIA SLIGHT; TOTAL CELLS COUNTED 100 #CELLS
[2019-02-05] MEDS ORDERED: ASPIRIN81 M1 PO (09:36)
[2019-02-05] MEDS ORDERED: NORVASC5 MG PO (09:37)
[2019-02-05] MEDS ORDERED: VERAPAMIL HCL240 M1 PO (09:39)
[2019-02-05] MEDS ORDERED: CLONIDINE HCL0.1 MG PO (09:49)
--- NOTE | 2019-02-05 15:29 | NUR ---
Inductor Tester in to talk to patient. Patient states lives at home with her and son. There are basement steps in the home. Physician: Dr. Kelsea [place] Pharmacy: [facility] Home health services: none Patient's level of ADLs: INDEPENDENT Patient has working utilities: yes DME: none Follow-up physician's appointment after d/c: she prefers to make her own follow up appt after discharge Does patient want to access PORTAL?: no Discharge plan discussed with patient. She lives at home with her and son. She is independent in her ADLs and ambulation, Discussed home health care services and she denies any home needs at this time. When medically stable she will be discharged to home. UMER UMANZOR
--- NOTE | 2019-02-05 15:42 | NUR ---
PT COMPLETED BLOOD TRANSFUSION AT THIS TIME, PT TOLERATED WELL.
[2019-02-05] MEDS ORDERED: PLAQUENIL200 MG PO (16:45)
[2019-02-05] MEDS ORDERED: TOPROL XL100 MG PO (16:47)
[2019-02-05] MEDS ORDERED: DEXILANT60 M1 PO (16:48)
--- NOTE | 2019-02-05 21:23 | NUR ---
PRN TYLENOL GIVEN FOR PT COMPLAINTS OF A HEADACHE. CALL LIGHT WITHIN REACH, WILL MONITOR
--- NOTE | 2019-02-05 22:30 | NUR ---
PRN TYLENOL EFFECTIVE PER PT
[2019-02-06] VITALS (9 sets, daily range): BP systolic 139–195; BP diastolic 58–80
--- NOTE | 2019-02-06 01:16 | NUR ---
24 HR chart check completed.
--- NOTE | 2019-02-06 01:28 | NUR ---
PATIENTS IV IN LEFT ARM INFILTRATED. IV SITE REMOVED. PATIENT ALSO STATED THAT SHE DOESN'T WANT ANY MORE FLUIDS. IV SITE IN THE RIGHT ARM FLUSHED 24 GAUGE. FLUSHES WELL. PATIENT REFUSING ANY MORE FLUIDS. CALL [facility], WILL MONITOR
[2019-02-06 06:36] LABS: BASO # 0.1 10*3/uL (0.0-0.1); BASO % 1.3 % (0.0-1.0); EOS # 0.3 10*3/uL (0.0-0.4); EOS % 2.5 % (1.0-4.0); HEMATOCRIT 33.6 % (37.0-47.0); HEMOGLOBIN 9.8 g/dl (12.0-16.0); LYMPH # 0.9 10*3/uL (1.3-4.4); LYMPH % 8.8 % (27.0-41.0); MEAN CELL VOLUME 79.6 fl (81.0-99.0); MEAN CORPUSCULAR HGB 23.2 pg (27.0-31.0); MEAN CORPUSCULAR HGB CONC 29.2 g/dl (33.0-37.0); MEAN PLATELET VOLUME 11.7 fl (9.6-12.3); MONO # 0.8 10*3/uL (0.1-1.0); MONO % 7.6 % (3.0-9.0); NEUT # 8.3 10*3/uL (2.3-7.9); NEUT % 79.3 % (47.0-73.0); PLATELET COUNT AUTOMATED 222 10*3/uL (130-400); RED BLOOD COUNT 4.22 10*6/uL (4.10-5.10); RED CELL DISTRI WIDTH 19.1 % (0-14.5); WHITE BLOOD COUNT 10.4 10*3/uL (4.8-10.8)
--- NOTE | 2019-02-06 09:00 | NUR ---
case management visits with patient, she states she will return home when medically stable, denies any home needs
--- NOTE | 2019-02-06 09:10 | NUR ---
PT OFF FLOOR FOR EGD/COLO AT THIS TIME.
--- NOTE | 2019-02-06 14:44 | NUR ---
Faxed updated clinicals to Octavio Guillaume at [phone]
--- NOTE | 2019-02-06 23:26 | NUR ---
DR CRISTOBAL NOTIFIED PT'S BP ELEVATED. NEW ORDER REC'D.
[2019-02-07] VITALS: BP 187/76
[2019-02-07 01:00] VITALS: BP 153/43
[2019-02-07 06:58] LABS: BASO # 0.1 10*3/uL (0.0-0.1); BASO % 1.2 % (0.0-1.0); EOS # 0.3 10*3/uL (0.0-0.4); EOS % 3.3 % (1.0-4.0); HEMATOCRIT 32.2 % (37.0-47.0); HEMOGLOBIN 9.5 g/dl (12.0-16.0); LYMPH # 0.7 10*3/uL (1.3-4.4); LYMPH % 9.7 % (27.0-41.0); MEAN CELL VOLUME 79.1 fl (81.0-99.0); MEAN CORPUSCULAR HGB 23.3 pg (27.0-31.0); MEAN CORPUSCULAR HGB CONC 29.5 g/dl (33.0-37.0); MONO # 0.7 10*3/uL (0.1-1.0); MONO % 8.9 % (3.0-9.0); NEUT # 5.8 10*3/uL (2.3-7.9); NUCLEATED RED BLOOD CELL 0.3 % (0.0-0.0); PLATELET COUNT AUTOMATED 209 10*3/uL (130-400); RED BLOOD COUNT 4.07 10*6/uL (4.10-5.10); RED CELL DISTRI WIDTH 19.9 % (0-14.5); WHITE BLOOD COUNT 7.6 10*3/uL (4.8-10.8)
[2019-02-07 07:26] LABS: BUN 3 mg/dl (7-24); CHLORIDE 102 mmol/L (98-107); SODIUM 138 mmol/L (136-145)
[2019-02-07 07:29] LABS: CREATININE 0.74 mg/dL (0.55-1.02)
[2019-02-07 08:00] VITALS: BP 138/55
[2019-02-07] MEDS ORDERED: FEROSUL325 MG PO (08:23)
--- NOTE | 2019-02-07 10:00 | NUR ---
FERRLICET INFUSION COMPLETED. SALAS Scott.
--- NOTE | 2019-02-07 10:27 | NUR ---
Discharge instructions reviewed with patient/family. Patient receptive and verbalizes understanding. Follow-up care arranged. Written instructions given to patient/family.HOME MED LIST PROVIDED AT D/C PER DR CRISTOBAL. HOME MED REPORT PRINTED AND PROVIDED TO PT ALSO. SABRINA SANCHEZ
== END 2019-02-07 10:27 | disposition home or self-care (01) | DRG 378 ==
LOC: ED 18:01 → EDHOLD 19:37 → ICCU 19:37 → 4E 19:37 → ICCU 20:13 → 4E 02-05 13:58
PROVIDERS: Emergency Medicine; ADMIT Internal Medicine
PROC: 30233N1 Transfusion of Nonautologous Red Blood Cells into Peripheral Vein, Percutaneous Approach (ICD-10-PCS; principal; 2019-02-04)
PROC: 0DB78ZX Excision of Stomach, Pylorus, Via Natural or Artificial Opening Endoscopic, Diagnostic (ICD-10-PCS; 2019-02-06)
PROC: 0DBN8ZZ Excision of Sigmoid Colon, Via Natural or Artificial Opening Endoscopic (ICD-10-PCS; 2019-02-06)
DX: K29.01 Acute gastritis with bleeding (principal); M31.8 Other specified necrotizing vasculopathies; F33.0 Major depressive disorder, recurrent, mild; L93.0 Discoid lupus erythematosus; I10 Essential (primary) hypertension; D50.9 Iron deficiency anemia, unspecified; K63.5 Polyp of colon; K57.31 Diverticulosis of large intestine without perforation or abscess with bleeding; G89.29 Other chronic pain; E03.9 Hypothyroidism, unspecified; F17.210 Nicotine dependence, cigarettes, uncomplicated; K44.9 Diaphragmatic hernia without obstruction or gangrene; E87.6 Hypokalemia; M54.9 Dorsalgia, unspecified; E11.9 Type 2 diabetes mellitus without complications; Z79.4 Long term (current) use of insulin; Z90.49 Acquired absence of other specified parts of digestive tract; Z90.710 Acquired absence of both cervix and uterus; Z83.3 Family history of diabetes mellitus; Z82.49 Family history of ischemic heart disease and other diseases of the circulatory system

== ENCOUNTER → 2019-02-04 | Outpatient (CLI) | payer OTHER ==
[2019-02-04 17:07] LABS: MEAN CELL VOLUME 74.6 fl (81.0-99.0); MEAN CORPUSCULAR HGB 19.4 pg (27.0-31.0); MEAN PLATELET VOLUME 11.7 fl (9.6-12.3); NUCLEATED RED BLOOD CELL 0.2 % (0.0-0.0); PLATELET COUNT AUTOMATED 226 10*3/uL (130-400); RED BLOOD COUNT 2.79 10*6/uL (4.10-5.10); RED CELL DISTRI WIDTH 18.5 % (0-14.5); WHITE BLOOD COUNT 8.3 10*3/uL (4.8-10.8)
[2019-02-04 17:20] LABS: HEMATOCRIT 20.8 % (37.0-47.0); HEMOGLOBIN 5.4 g/dl (12.0-16.0)
[2019-02-04 17:49] LABS: BASOPHILS 1 % (0-1); PLATELET SUFFICIENCY NORMAL (NORMAL); POLYCHROMASIA SLIGHT; TOTAL CELLS COUNTED 100 #CELLS
[2019-02-04 17:50] LABS: MICROCYTOSIS SLIGHT; OVALOCYTES FEW
== END | disposition home or self-care (01) ==
LOC: LAB 16:44
PROVIDERS: Internal Medicine
DX: R53.81 Other malaise (principal)

== ENCOUNTER → 2019-04-01 | Outpatient (CLI) | payer OTHER ==
[~2019-04-01] MED LIST changes: +CARVEDILOL12.5 MG PO; +CLONIDINE HCL0.1 MG PO; +FEROSUL325 MG PO; +NORVASC5 MG PO; +PANTOPRAZOLE SO40 MG PO; +TOPROL XL100 MG PO; +VERAPAMIL HCL240 M1 PO
[2019-04-01 07:12] LABS: BASO # 0.1 10*3/uL (0.0-0.1); BASO % 1.4 % (0.0-1.0); EOS % 0.1 % (1.0-4.0); HEMATOCRIT 44.3 % (37.0-47.0); HEMOGLOBIN 13.8 g/dl (12.0-16.0); LYMPH # 1.4 10*3/uL (1.3-4.4); LYMPH % 16.8 % (27.0-41.0); MEAN CELL VOLUME 94.9 fl (81.0-99.0); MEAN CORPUSCULAR HGB 29.6 pg (27.0-31.0); MEAN CORPUSCULAR HGB CONC 31.2 g/dl (33.0-37.0); MEAN PLATELET VOLUME 10.5 fl (9.6-12.3); MONO # 0.7 10*3/uL (0.1-1.0); MONO % 7.7 % (3.0-9.0); NEUT # 6.3 10*3/uL (2.3-7.9); NEUT % 73.3 % (47.0-73.0); PLATELET COUNT AUTOMATED 249 10*3/uL (130-400); RED BLOOD COUNT 4.67 10*6/uL (4.10-5.10); RED CELL DISTRI WIDTH 18.2 % (0-14.5); WHITE BLOOD COUNT 8.5 10*3/uL (4.8-10.8)
== END | disposition home or self-care (01) ==
LOC: LAB 06:06
PROVIDERS: Internal Medicine
DX: D64.9 Anemia, unspecified (principal)

== ENCOUNTER → 2019-10-15 | Outpatient (CLI) | payer OTHER ==
[2019-10-15 19:16] LABS: BASO # 0.1 10*3/uL (0.0-0.1); BASO % 1.2 % (0.0-1.0); EOS # 0.3 10*3/uL (0.0-0.4); EOS % 3.9 % (1.0-4.0); HEMATOCRIT 42.1 % (37.0-47.0); LYMPH # 1.4 10*3/uL (1.3-4.4); LYMPH % 20.7 % (27.0-41.0); MEAN CELL VOLUME 93.3 fl (81.0-99.0); MEAN CORPUSCULAR HGB CONC 33.3 g/dl (33.0-37.0); MEAN PLATELET VOLUME 10.8 fl (9.6-12.3); MONO # 0.5 10*3/uL (0.1-1.0); MONO % 7.6 % (3.0-9.0); NEUT # 4.6 10*3/uL (2.3-7.9); PLATELET COUNT AUTOMATED 203 10*3/uL (130-400); RED BLOOD COUNT 4.51 10*6/uL (4.10-5.10); RED CELL DISTRI WIDTH 12.2 % (0-14.5); WHITE BLOOD COUNT 6.9 10*3/uL (4.8-10.8)
== END | disposition home or self-care (01) ==
LOC: LAB 18:41
PROVIDERS: Internal Medicine
DX: R53.81 Other malaise (principal)

== ENCOUNTER → 2020-03-28 | Outpatient (CLI) | payer OTHER | END | disposition home or self-care (01) | LOC: COVID19 13:43 | PROVIDERS: ATTEND Internal Medicine | DX: Z20.828 Contact with and (suspected) exposure to other viral communicable diseases (principal) ==

== ENCOUNTER 2020-09-01 21:38 | Inpatient (IN) | payer OTHER ==
[~2020-09-01] VITALS: Ht 157.4 cm; Wt 73.1 kg
[2020-09-01 21:47] VITALS: BP 189/97
[2020-09-01 22:11] LABS: HEMATOCRIT 35.6 % (37.0-47.0); MEAN CORPUSCULAR HGB 29.7 pg (27.0-31.0); MEAN CORPUSCULAR HGB CONC 32.6 g/dl (33.0-37.0); MEAN PLATELET VOLUME 10.5 fl (9.6-12.3); PLATELET COUNT AUTOMATED 224 10*3/uL (130-400); RED BLOOD COUNT 3.91 10*6/uL (4.10-5.10); RED CELL DISTRI WIDTH 13.3 % (0-14.5); WHITE BLOOD COUNT 17.3 10*3/uL (4.8-10.8)
[2020-09-01 22:31] LABS: ALBUMIN 2.5 gm/dl (3.1-4.5); ALKALINE PHOSPHATASE 114 U/L (45-117); BUN 10 mg/dl (7-24); CHLORIDE 98 mmol/L (98-107); POTASSIUM 3.7 mmol/L (3.5-5.1); SGOT/AST 11 IU/L (3-35); SGPT/ALT 12 U/L (12-78); SODIUM 129 mmol/L (136-145); TOTAL PROTEIN 6.8 gm/dL (6.4-8.2); TROPONIN I 0.028 ng/ml (<0.045)
[2020-09-01 22:52] LABS: PLATELET SUFFICIENCY NORMAL (NORMAL); TOTAL CELLS COUNTED 100 #CELLS
[2020-09-01 23:22] VITALS: BP 180/86
[2020-09-02 01:10] VITALS: BP 155/85
[2020-09-02] MEDS ORDERED: PROTONIX TR40 M1 PO (01:35)
[2020-09-02] MEDS ORDERED: ASPIRIN ADULT L81 M1 PO (01:37)
[2020-09-02] MEDS ORDERED: COREG12.5 M1 PO (01:39)
[2020-09-02] MEDS ORDERED: CLONIDINE1 EAC2 T (01:40)
[2020-09-02] MEDS ORDERED: CETIRIZINE HYDR10 MG PO (01:43)
[2020-09-02 08:00] VITALS: BP 155/55
[2020-09-02 12:00] VITALS: BP 138/62
[2020-09-02 16:00] VITALS: BP 145/67
[2020-09-02 20:00] VITALS: BP 157/68
[2020-09-03] VITALS: BP 153/85
[2020-09-03 01:28] VITALS: BP 126/44
[2020-09-03 06:00] LABS: HEMATOCRIT 32.8 % (37.0-47.0); MEAN CELL VOLUME 91.4 fl (81.0-99.0); MEAN CORPUSCULAR HGB CONC 31.7 g/dl (33.0-37.0); MEAN PLATELET VOLUME 10.9 fl (9.6-12.3); PLATELET COUNT AUTOMATED 234 10*3/uL (130-400); RED BLOOD COUNT 3.59 10*6/uL (4.10-5.10); RED CELL DISTRI WIDTH 13.2 % (0-14.5); WHITE BLOOD COUNT 10.6 10*3/uL (4.8-10.8)
[2020-09-03 06:11] LABS: ALBUMIN 2.2 gm/dl (3.1-4.5); BUN 18 mg/dl (7-24); CHLORIDE 99 mmol/L (98-107); CREATININE 0.78 mg/dL (0.55-1.02); POTASSIUM 3.9 mmol/L (3.5-5.1); SGOT/AST 8 IU/L (3-35); SGPT/ALT 13 U/L (12-78); SODIUM 129 mmol/L (136-145)
[2020-09-03 06:13] LABS: ALKALINE PHOSPHATASE 102 U/L (45-117); TOTAL PROTEIN 6.2 gm/dL (6.4-8.2)
[2020-09-03 07:21] LABS: PLATELET SUFFICIENCY NORMAL (NORMAL); TOTAL CELLS COUNTED 100 #CELLS
[2020-09-03 08:54] VITALS: BP 117/58
[2020-09-03 12:24] VITALS: BP 120/53
[2020-09-03 16:11] VITALS: BP 153/55
[2020-09-03 20:00] VITALS: BP 155/74
[2020-09-04] VITALS: BP 153/60
[2020-09-04 06:11] LABS: MEAN CELL VOLUME 90.9 fl (81.0-99.0); MEAN CORPUSCULAR HGB 28.7 pg (27.0-31.0); MEAN CORPUSCULAR HGB CONC 31.5 g/dl (33.0-37.0); PLATELET COUNT AUTOMATED 267 10*3/uL (130-400); RED BLOOD COUNT 3.63 10*6/uL (4.10-5.10); RED CELL DISTRI WIDTH 13.3 % (0-14.5); WHITE BLOOD COUNT 13.4 10*3/uL (4.8-10.8)
[2020-09-04 06:34] LABS: ALBUMIN 2.3 gm/dl (3.1-4.5); ALKALINE PHOSPHATASE 94 U/L (45-117); BUN 23 mg/dl (7-24); CHLORIDE 99 mmol/L (98-107); CREATININE 0.77 mg/dL (0.55-1.02); POTASSIUM 4.1 mmol/L (3.5-5.1); SGOT/AST 8 IU/L (3-35); SGPT/ALT 15 U/L (12-78); SODIUM 130 mmol/L (136-145); TOTAL PROTEIN 6.1 gm/dL (6.4-8.2)
[2020-09-04 07:23] LABS: PLATELET SUFFICIENCY NORMAL (NORMAL); TOTAL CELLS COUNTED 100 #CELLS
[2020-09-04 07:57] VITALS: BP 184/70
[2020-09-04 12:00] VITALS: BP 139/82
[2020-09-04 16:00] VITALS: BP 156/82
[2020-09-04 20:00] VITALS: BP 159/82
[2020-09-05] VITALS: BP 155/86
[2020-09-05 06:20] LABS: ALBUMIN 2.1 gm/dl (3.1-4.5); ALKALINE PHOSPHATASE 80 U/L (45-117); BUN 25 mg/dl (7-24); CHLORIDE 103 mmol/L (98-107); CREATININE 0.76 mg/dL (0.55-1.02); POTASSIUM 4.3 mmol/L (3.5-5.1); SGOT/AST 9 IU/L (3-35); SGPT/ALT 16 U/L (12-78); SODIUM 136 mmol/L (136-145); TOTAL PROTEIN 5.4 gm/dL (6.4-8.2)
[2020-09-05 06:33] LABS: HEMATOCRIT 32.1 % (37.0-47.0); MEAN CELL VOLUME 90.9 fl (81.0-99.0); MEAN CORPUSCULAR HGB 28.9 pg (27.0-31.0); MEAN CORPUSCULAR HGB CONC 31.8 g/dl (33.0-37.0); MEAN PLATELET VOLUME 10.6 fl (9.6-12.3); PLATELET COUNT AUTOMATED 259 10*3/uL (130-400); RED BLOOD COUNT 3.53 10*6/uL (4.10-5.10); RED CELL DISTRI WIDTH 13.5 % (0-14.5); WHITE BLOOD COUNT 14.5 10*3/uL (4.8-10.8)
[2020-09-05 07:23] LABS: BURR CELLS FEW; PLATELET SUFFICIENCY NORMAL (NORMAL); POLYCHROMASIA SLIGHT; TOTAL CELLS COUNTED 100 #CELLS
[2020-09-05 08:54] VITALS: BP 140/80
[2020-09-05 12:00] VITALS: BP 117/49
[2020-09-05 16:00] VITALS: BP 160/75
[2020-09-05 20:00] VITALS: BP 159/73
[2020-09-06] VITALS: BP 162/67
[2020-09-06 06:12] LABS: HEMATOCRIT 33.1 % (37.0-47.0); MEAN CELL VOLUME 93.2 fl (81.0-99.0); MEAN CORPUSCULAR HGB 28.7 pg (27.0-31.0); MEAN CORPUSCULAR HGB CONC 30.8 g/dl (33.0-37.0); MEAN PLATELET VOLUME 10.3 fl (9.6-12.3); PLATELET COUNT AUTOMATED 269 10*3/uL (130-400); RED BLOOD COUNT 3.55 10*6/uL (4.10-5.10); RED CELL DISTRI WIDTH 13.5 % (0-14.5); WHITE BLOOD COUNT 13.1 10*3/uL (4.8-10.8)
[2020-09-06 06:28] LABS: BUN 21 mg/dl (7-24); CHLORIDE 101 mmol/L (98-107); CREATININE 0.84 mg/dL (0.55-1.02); POTASSIUM 4.2 mmol/L (3.5-5.1); SODIUM 135 mmol/L (136-145)
[2020-09-06 06:54] LABS: OVALOCYTES FEW; PLATELET SUFFICIENCY NORMAL (NORMAL); TOTAL CELLS COUNTED 100 #CELLS
[2020-09-06 08:00] VITALS: BP 134/61
[2020-09-06 12:00] VITALS: BP 141/69
[2020-09-06 16:00] VITALS: BP 184/87
[2020-09-06 17:14] VITALS: BP 160/70
[2020-09-06 20:00] VITALS: BP 187/98
[2020-09-07] VITALS: BP 173/61
[2020-09-07 05:46] LABS: BUN 16 mg/dl (7-24); CREATININE 0.68 mg/dL (0.55-1.02)
[2020-09-07 06:19] LABS: HEMATOCRIT 32.6 % (37.0-47.0); MEAN CELL VOLUME 92.4 fl (81.0-99.0); MEAN CORPUSCULAR HGB 28.9 pg (27.0-31.0); MEAN CORPUSCULAR HGB CONC 31.3 g/dl (33.0-37.0); MEAN PLATELET VOLUME 10.2 fl (9.6-12.3); PLATELET COUNT AUTOMATED 284 10*3/uL (130-400); RED BLOOD COUNT 3.53 10*6/uL (4.10-5.10); RED CELL DISTRI WIDTH 13.7 % (0-14.5); WHITE BLOOD COUNT 13.2 10*3/uL (4.8-10.8)
[2020-09-07 06:20] LABS: CHLORIDE 99 mmol/L (98-107); POTASSIUM 3.9 mmol/L (3.5-5.1); SODIUM 136 mmol/L (136-145)
[2020-09-07 07:02] LABS: PLATELET SUFFICIENCY NORMAL (NORMAL); POLYCHROMASIA SLIGHT; TOTAL CELLS COUNTED 100 #CELLS
[2020-09-07 08:00] VITALS: BP 136/90
[2020-09-07 12:00] VITALS: BP 175/65
[2020-09-07 16:00] VITALS: BP 183/64
[2020-09-07 20:00] VITALS: BP 200/78
[2020-09-07 22:50] VITALS: BP 170/64
[2020-09-08] VITALS (8 sets, daily range): BP systolic 106–184; BP diastolic 50–78
[2020-09-08 06:32] LABS: MEAN CELL VOLUME 92.8 fl (81.0-99.0); MEAN CORPUSCULAR HGB 28.9 pg (27.0-31.0); MEAN CORPUSCULAR HGB CONC 31.1 g/dl (33.0-37.0); MEAN PLATELET VOLUME 9.9 fl (9.6-12.3); PLATELET COUNT AUTOMATED 304 10*3/uL (130-400); RED BLOOD COUNT 3.77 10*6/uL (4.10-5.10); RED CELL DISTRI WIDTH 13.9 % (0-14.5); WHITE BLOOD COUNT 14.4 10*3/uL (4.8-10.8)
[2020-09-08 07:11] LABS: BUN 12 mg/dl (7-24); CHLORIDE 101 mmol/L (98-107); CREATININE 0.57 mg/dL (0.55-1.02); POTASSIUM 3.6 mmol/L (3.5-5.1); SODIUM 139 mmol/L (136-145)
[2020-09-08 07:19] LABS: BASOPHILS 1 % (0-1); PLATELET SUFFICIENCY NORMAL (NORMAL); POLYCHROMASIA SLIGHT; TOTAL CELLS COUNTED 100 #CELLS
[2020-09-09] VITALS: BP 140/68; BP 164/70
[2020-09-09 02:30] VITALS: BP 164/70
[2020-09-09 04:15] VITALS: BP 152/66
[2020-09-09 08:10] VITALS: BP 113/75
[2020-09-09] MEDS ORDERED: CEFTRIAXON2 GM/50 ML IV (11:58)
[2020-09-09 12:20] VITALS: BP 160/82
[2020-09-09] MEDS ORDERED: NICODERM T (12:33)
[2020-09-09] MEDS ORDERED: CARVEDILOL6.25 MG PO (12:33)
[2020-09-09] MEDS ORDERED: AMLODIPINE BESYL5 MG PO (12:33)
== END 2020-09-09 13:49 | disposition home health service (06) | DRG 871 ==
LOC: ED 21:38 → EDHOLD 09-02 → 4E 09-02
PROVIDERS: Emergency Medicine; Internal Medicine Critical Care Medicine; ADMIT Internal Medicine; ATTEND Internal Medicine
PROC: 02HV33Z Insertion of Infusion Device into Superior Vena Cava, Percutaneous Approach (ICD-10-PCS; principal; 2020-09-07)
PROC: B24BZZ4 Ultrasonography of Heart with Aorta, Transesophageal (ICD-10-PCS; 2020-09-08)
DX: A41.9 Sepsis, unspecified organism (principal); J18.1 Lobar pneumonia, unspecified organism; J96.21 Acute and chronic respiratory failure with hypoxia; J44.1 Chronic obstructive pulmonary disease with (acute) exacerbation; E87.1 Hypo-osmolality and hyponatremia; F33.1 Major depressive disorder, recurrent, moderate; J44.0 Chronic obstructive pulmonary disease with (acute) lower respiratory infection; E44.0 Moderate protein-calorie malnutrition; R00.1 Bradycardia, unspecified; I10 Essential (primary) hypertension; K21.00 Gastro-esophageal reflux disease with esophagitis, without bleeding; I77.6 Arteritis, unspecified; M32.9 Systemic lupus erythematosus, unspecified; B96.89 Other specified bacterial agents as the cause of diseases classified elsewhere; K57.90 Diverticulosis of intestine, part unspecified, without perforation or abscess without bleeding; E66.9 Obesity, unspecified; E03.9 Hypothyroidism, unspecified; G89.29 Other chronic pain; F17.210 Nicotine dependence, cigarettes, uncomplicated; M48.02 Spinal stenosis, cervical region; I25.10 Atherosclerotic heart disease of native coronary artery without angina pectoris; E11.65 Type 2 diabetes mellitus with hyperglycemia; B95.3 Streptococcus pneumoniae as the cause of diseases classified elsewhere; M54.9 Dorsalgia, unspecified; M19.90 Unspecified osteoarthritis, unspecified site; D50.9 Iron deficiency anemia, unspecified; Z86.010 Personal history of colon polyps; Z91.81 History of falling; Z87.440 Personal history of urinary (tract) infections; Z90.49 Acquired absence of other specified parts of digestive tract; Z90.710 Acquired absence of both cervix and uterus; Z83.3 Family history of diabetes mellitus; Z82.49 Family history of ischemic heart disease and other diseases of the circulatory system; Z68.29 Body mass index [BMI] 29.0-29.9, adult

== ENCOUNTER → 2021-05-19 | Outpatient (CLI) | payer OTHER ==
[~2021-05-19] MED LIST changes: +AMLODIPINE BESYL5 MG PO; +ASPIRIN ADULT L81 M1 PO; +CARVEDILOL6.25 MG PO; +CEFTRIAXON2 GM/50 ML IV; +CETIRIZINE HYDR10 MG PO; +CLONIDINE1 EAC2 T; +COREG12.5 M1 PO; +NICODERM T; +PROTONIX TR40 M1 PO
[2021-05-19 14:28] LABS: BASO # 0.1 10*3/uL (0.0-0.1); BASO % 0.9 % (0.0-1.0); EOS # 0.3 10*3/uL (0.0-0.4); EOS % 3.3 % (1.0-4.0); HEMATOCRIT 33.4 % (37.0-47.0); LYMPH % 11.6 % (27.0-41.0); MEAN CELL VOLUME 90.5 fl (81.0-99.0); MEAN CORPUSCULAR HGB 29.5 pg (27.0-31.0); MEAN CORPUSCULAR HGB CONC 32.6 g/dl (33.0-37.0); MEAN PLATELET VOLUME 10.6 fl (9.6-12.3); MONO # 0.6 10*3/uL (0.1-1.0); MONO % 6.5 % (3.0-9.0); NEUT # 6.7 10*3/uL (2.3-7.9); NEUT % 76.9 % (47.0-73.0); PLATELET COUNT AUTOMATED 289 10*3/uL (130-400); RED BLOOD COUNT 3.69 10*6/uL (4.10-5.10); RED CELL DISTRI WIDTH 13.7 % (0-14.5); WHITE BLOOD COUNT 8.8 10*3/uL (4.8-10.8)
[2021-05-19 14:51] LABS: BUN 11 mg/dl (7-24); CHLORIDE 98 mmol/L (98-107); CHOLESTEROL 127 mg/dL (<200); CREATININE 0.94 mg/dL (0.55-1.02); POTASSIUM 4.4 mmol/L (3.5-5.1); SGOT/AST 10 IU/L (3-35); SGPT/ALT 18 U/L (12-78); SODIUM 130 mmol/L (136-145); T3 UPTAKE 34 % (31-39); TOTAL PROTEIN 6.3 gm/dL (6.4-8.2); TRIGLYCERIDES 184 mg/dl (<150)
[2021-05-19 14:52] LABS: ALKALINE PHOSPHATASE 114 U/L (45-117); THYROXINE (T4) TOTAL 12.4 ug/dl (4.8-13.9)
[2021-05-19 15:12] LABS: VITAMIN D, 25-HYDROXY 14.5 ng/mL (30-100)
[2021-05-19 15:48] LABS: LDL CHOLESTEROL 58 mg/dL (9-159)
== END | disposition home or self-care (01) ==
LOC: LAB 13:49
PROVIDERS: ATTEND Internal Medicine
DX: I10 Essential (primary) hypertension (principal); E11.9 Type 2 diabetes mellitus without complications; D50.8 Other iron deficiency anemias; E03.9 Hypothyroidism, unspecified; Z00.01 Encounter for general adult medical examination with abnormal findings; E55.9 Vitamin D deficiency, unspecified

== ENCOUNTER → 2021-05-24 | Outpatient (CLI) | payer OTHER | END | disposition home or self-care (01) | LOC: RAD 08:59 | PROVIDERS: ATTEND Internal Medicine | DX: M81.0 Age-related osteoporosis without current pathological fracture (principal) ==

== ENCOUNTER → 2021-12-05 | Outpatient (CLI) | payer OTHER ==
[2021-12-05 13:52] LABS: BASO # 0.1 10*3/uL (0.0-0.1); BASO % 1.7 % (0.0-1.0); EOS % 0.6 % (1.0-4.0); HEMATOCRIT 26.8 % (37.0-47.0); LYMPH % 15.1 % (27.0-41.0); MEAN CELL VOLUME 84.3 fl (81.0-99.0); MEAN CORPUSCULAR HGB 24.2 pg (27.0-31.0); MEAN CORPUSCULAR HGB CONC 28.7 g/dl (33.0-37.0); MEAN PLATELET VOLUME 9.7 fl (9.6-12.3); MONO # 0.3 10*3/uL (0.1-1.0); MONO % 5.1 % (3.0-9.0); NEUT # 5.1 10*3/uL (2.3-7.9); NEUT % 76.7 % (47.0-73.0); PLATELET COUNT AUTOMATED 275 10*3/uL (130-400); RED BLOOD COUNT 3.18 10*6/uL (4.10-5.10); RED CELL DISTRI WIDTH 16.2 % (0-14.5); WHITE BLOOD COUNT 6.6 10*3/uL (4.8-10.8)
[2021-12-05 14:10] LABS: ALKALINE PHOSPHATASE 63 U/L (45-117); BUN 15 mg/dl (7-24); CHLORIDE 107 mmol/L (98-107); CREATININE 1.04 mg/dL (0.55-1.02); POTASSIUM 3.7 mmol/L (3.5-5.1); SGOT/AST 25 IU/L (3-35); SGPT/ALT 19 U/L (12-78); SODIUM 131 mmol/L (136-145); TOTAL PROTEIN 6.5 gm/dL (6.4-8.2)
== END | disposition home or self-care (01) ==
LOC: LAB 13:35
PROVIDERS: ATTEND Internal Medicine
DX: Z13.1 Encounter for screening for diabetes mellitus (principal); Z13.0 Encounter for screening for diseases of the blood and blood-forming organs and certain disorders involving the immune mechanism; Z13.220 Encounter for screening for lipoid disorders; Z13.89 Encounter for screening for other disorder; D64.9 Anemia, unspecified; M32.9 Systemic lupus erythematosus, unspecified; R53.81 Other malaise; R79.89 Other specified abnormal findings of blood chemistry; E55.9 Vitamin D deficiency, unspecified; D51.9 Vitamin B12 deficiency anemia, unspecified; Z13.21 Encounter for screening for nutritional disorder; Z13.6 Encounter for screening for cardiovascular disorders

== ENCOUNTER 2021-12-14 13:48 | Emergency (ER) | payer OTHER ==
[~2021-12-14] VITALS: Ht 157.4 cm; Wt 77.1 kg
[2021-12-14 13:50] VITALS: BP 181/57
[2021-12-14] MEDS ORDERED: CYCLOBENZAPRINE10 MG PO ×2 (15:30)
[2021-12-14] MEDS ORDERED: PREDNISONE50 MG PO ×2 (15:30)
[2021-12-14] MEDS ORDERED: HYDROCODONE-AC1 EAC1 PO ×2 (15:30)
== END 2021-12-14 15:36 | disposition home or self-care (01) ==
LOC: ED 13:48
DX: M54.6 Pain in thoracic spine (principal); M54.50 Low back pain, unspecified; R53.1 Weakness; Z79.2 Long term (current) use of antibiotics; Z79.899 Other long term (current) drug therapy; Z79.82 Long term (current) use of aspirin; Z90.710 Acquired absence of both cervix and uterus; Z90.49 Acquired absence of other specified parts of digestive tract

== ENCOUNTER 2021-12-19 12:30 | Inpatient (IN) | payer OTHER ==
[2021-12-19] VITALS (17 sets, daily range): BP systolic 140–190; BP diastolic 74–96
[~2021-12-19] VITALS: Ht 157.5 cm; Wt 80.0 kg
[~2021-12-19 12:30] MED LIST changes: +CYCLOBENZAPRINE10 MG PO; +HYDROCODONE-AC1 EAC1 PO; +PREDNISONE50 MG PO
[2021-12-19 12:56] LABS: MEAN CELL VOLUME 86.3 fl (81.0-99.0); MEAN CORPUSCULAR HGB 23.9 pg (27.0-31.0); MEAN CORPUSCULAR HGB CONC 27.7 g/dl (33.0-37.0); MEAN PLATELET VOLUME 10.2 fl (9.6-12.3); NUCLEATED RED BLOOD CELL 0.1 10*3/uL (0.0-0.0); NUCLEATED RED BLOOD CELL 0.9 % (0.0-0.0); PLATELET COUNT AUTOMATED 259 10*3/uL (130-400); RED BLOOD COUNT 2.55 10*6/uL (4.10-5.10); RED CELL DISTRI WIDTH 18.2 % (0-14.5); WHITE BLOOD COUNT 9.4 10*3/uL (4.8-10.8)
[2021-12-19 13:01] LABS: MANUAL DIFF REFLEX YES
[2021-12-19 13:11] LABS: ALKALINE PHOSPHATASE 57 U/L (45-117); BUN 15 mg/dl (7-24); CHLORIDE 97 mmol/L (98-107); CREATININE 0.97 mg/dL (0.55-1.02); LIPASE 67 U/L (73-393); POTASSIUM 3.4 mmol/L (3.5-5.1); SGOT/AST 8 IU/L (3-35); SGPT/ALT 18 U/L (12-78); SODIUM 135 mmol/L (136-145); TOTAL PROTEIN 6.5 gm/dL (6.4-8.2)
[2021-12-19 13:16] LABS: PLATELET SUFFICIENCY NORMAL (NORMAL); POLYCHROMASIA SLIGHT; TOTAL CELLS COUNTED 100 #CELLS; TOXIC GRANULATION SLIGHT
[2021-12-19 13:29] LABS: ACT PARTIAL THROMBO TIME 21.5 SECONDS (20.0-32.1)
[2021-12-19] MEDS ORDERED: COREG12.5 M1 PO (20:55)
[2021-12-19] MEDS ORDERED: INSULIN GL100 UNIT/3 SC (20:57)
[2021-12-20] VITALS (11 sets, daily range): BP systolic 104–216; BP diastolic 68–95
[2021-12-20 04:36] LABS: BASO # 0.1 10*3/uL (0.0-0.1); BASO % 0.5 % (0.0-1.0); EOS # 0.2 10*3/uL (0.0-0.4); EOS % 1.6 % (1.0-4.0); HEMATOCRIT 35.2 % (37.0-47.0); LYMPH # 1.1 10*3/uL (1.3-4.4); LYMPH % 12.3 % (27.0-41.0); MEAN CELL VOLUME 85.9 fl (81.0-99.0); MEAN CORPUSCULAR HGB 26.6 pg (27.0-31.0); MEAN PLATELET VOLUME 10.4 fl (9.6-12.3); MONO # 0.6 10*3/uL (0.1-1.0); MONO % 6.9 % (3.0-9.0); NEUT # 7.2 10*3/uL (2.3-7.9); NEUT % 77.6 % (47.0-73.0); NUCLEATED RED BLOOD CELL 0.1 10*3/uL (0.0-0.0); NUCLEATED RED BLOOD CELL 0.8 % (0.0-0.0); PLATELET COUNT AUTOMATED 223 10*3/uL (130-400); RED CELL DISTRI WIDTH 16.3 % (0-14.5); WHITE BLOOD COUNT 9.2 10*3/uL (4.8-10.8)
[2021-12-20 04:51] LABS: ALKALINE PHOSPHATASE 58 U/L (45-117); BUN 11 mg/dl (7-24); CHLORIDE 99 mmol/L (98-107); POTASSIUM 3.4 mmol/L (3.5-5.1); SGOT/AST 13 IU/L (3-35); SGPT/ALT 19 U/L (12-78); SODIUM 140 mmol/L (136-145); TOTAL PROTEIN 6.3 gm/dL (6.4-8.2)
[2021-12-20] MEDS ORDERED: Synthroid,Lev150 MCG PO (07:43)
[2021-12-20 10:50] LABS: CHOLESTEROL 178 mg/dL (<200); TRIGLYCERIDES 185 mg/dl (<150)
[2021-12-20 10:55] LABS: LDL CHOLESTEROL 88 mg/dL (9-159)
[2021-12-21] VITALS: BP 159/79
[2021-12-21 06:30] LABS: BASO # 0.1 10*3/uL (0.0-0.1); BASO % 0.7 % (0.0-1.0); EOS # 0.3 10*3/uL (0.0-0.4); EOS % 2.7 % (1.0-4.0); HEMATOCRIT 39.9 % (37.0-47.0); LYMPH # 0.9 10*3/uL (1.3-4.4); LYMPH % 8.8 % (27.0-41.0); MEAN CELL VOLUME 86.4 fl (81.0-99.0); MEAN CORPUSCULAR HGB 26.2 pg (27.0-31.0); MEAN CORPUSCULAR HGB CONC 30.3 g/dl (33.0-37.0); MEAN PLATELET VOLUME 9.8 fl (9.6-12.3); MONO # 0.7 10*3/uL (0.1-1.0); MONO % 6.4 % (3.0-9.0); NEUT # 8.4 10*3/uL (2.3-7.9); NEUT % 80.7 % (47.0-73.0); NUCLEATED RED BLOOD CELL 0.3 % (0.0-0.0); PLATELET COUNT AUTOMATED 225 10*3/uL (130-400); RED BLOOD COUNT 4.62 10*6/uL (4.10-5.10); RED CELL DISTRI WIDTH 17.2 % (0-14.5); WHITE BLOOD COUNT 10.4 10*3/uL (4.8-10.8)
[2021-12-21 06:49] LABS: BUN 10 mg/dl (7-24); CHLORIDE 97 mmol/L (98-107); CREATININE 0.97 mg/dL (0.55-1.02); POTASSIUM 3.4 mmol/L (3.5-5.1); SODIUM 134 mmol/L (136-145)
[2021-12-21 08:00] VITALS: BP 117/83
[2021-12-21] MEDS ORDERED: NORVASC2.5 MG PO (08:44)
[2021-12-21] MEDS ORDERED: ATORVASTATIN CA20 M1 PO (08:44)
== END 2021-12-21 11:36 | disposition home or self-care (01) | DRG 378 ==
LOC: ED 12:30 → EDHOLD 14:51 → 5E 14:51
PROVIDERS: Emergency Medicine; Internal Medicine Cardiovascular Disease; ADMIT Internal Medicine; ATTEND Internal Medicine
PROC: 0DB98ZX Excision of Duodenum, Via Natural or Artificial Opening Endoscopic, Diagnostic (ICD-10-PCS; principal; 2021-12-20)
PROC: 30233N1 Transfusion of Nonautologous Red Blood Cells into Peripheral Vein, Percutaneous Approach (ICD-10-PCS; 2021-12-20)
DX: K29.71 Gastritis, unspecified, with bleeding (principal); I24.8 Other forms of acute ischemic heart disease; R71.0 Precipitous drop in hematocrit; Z20.822 Contact with and (suspected) exposure to COVID-19; I10 Essential (primary) hypertension; I25.10 Atherosclerotic heart disease of native coronary artery without angina pectoris; F32.9 Major depressive disorder, single episode, unspecified; E78.2 Mixed hyperlipidemia; E11.9 Type 2 diabetes mellitus without complications; E03.9 Hypothyroidism, unspecified; M32.9 Systemic lupus erythematosus, unspecified; Z79.899 Other long term (current) drug therapy; K21.9 Gastro-esophageal reflux disease without esophagitis

== ENCOUNTER → 2022-04-12 | Outpatient (CLI) | payer OTHER ==
[~2022-04-12] MED LIST changes: +ATORVASTATIN CA20 M1 PO; +INSULIN GL100 UNIT/3 SC; +NORVASC2.5 MG PO; +Synthroid,Lev150 MCG PO
[2022-04-12 17:10] LABS: BASO # 0.1 10*3/uL (0.0-0.1); BASO % 0.9 % (0.0-1.0); EOS # 0.3 10*3/uL (0.0-0.4); EOS % 3.8 % (1.0-4.0); HEMATOCRIT 38.5 % (37.0-47.0); LYMPH # 0.9 10*3/uL (1.3-4.4); LYMPH % 13.1 % (27.0-41.0); MEAN CELL VOLUME 87.5 fl (81.0-99.0); MEAN CORPUSCULAR HGB CONC 31.9 g/dl (33.0-37.0); MEAN PLATELET VOLUME 10.3 fl (9.6-12.3); MONO # 0.4 10*3/uL (0.1-1.0); MONO % 5.7 % (3.0-9.0); NEUT # 5.2 10*3/uL (2.3-7.9); NEUT % 76.1 % (47.0-73.0); PLATELET COUNT AUTOMATED 294 10*3/uL (130-400); RED CELL DISTRI WIDTH 12.4 % (0-14.5); WHITE BLOOD COUNT 6.8 10*3/uL (4.8-10.8)
[2022-04-12 17:46] LABS: ALKALINE PHOSPHATASE 123 U/L (46-116); BUN 9 mg/dl (9-23); CHLORIDE 97 mmol/L (98-107); CHOLESTEROL 108 mg/dL (<200); LDL CHOLESTEROL 55 mg/dL (9-159); POTASSIUM 4.2 mmol/L (3.4-5.1); SGPT/ALT 14 U/L (10-49); THYROXINE (T4) TOTAL 15.3 ug/dl (4.5-10.9); TOTAL PROTEIN 6.6 gm/dL (6.0-8.0); TRIGLYCERIDES 97 mg/dl (<150)
[2022-04-12 18:29] LABS: VITAMIN D, 25-HYDROXY 18.9 ng/mL (30-100)
== END | disposition home or self-care (01) ==
LOC: LAB 16:50
PROVIDERS: ATTEND Internal Medicine
DX: E11.9 Type 2 diabetes mellitus without complications (principal); D50.8 Other iron deficiency anemias; I10 Essential (primary) hypertension; E55.9 Vitamin D deficiency, unspecified; E03.9 Hypothyroidism, unspecified

== ENCOUNTER → 2022-08-10 | Outpatient (CLI) | payer OTHER ==
[2022-08-10 11:45] LABS: BASO # 0.1 10*3/uL (0.0-0.1); EOS # 0.3 10*3/uL (0.0-0.4); EOS % 4.9 % (1.0-4.0); HEMATOCRIT 35.8 % (37.0-47.0); LYMPH # 0.8 10*3/uL (1.3-4.4); MEAN CELL VOLUME 91.8 fl (81.0-99.0); MEAN CORPUSCULAR HGB 29.2 pg (27.0-31.0); MEAN CORPUSCULAR HGB CONC 31.8 g/dl (33.0-37.0); MEAN PLATELET VOLUME 10.5 fl (9.6-12.3); MONO # 0.4 10*3/uL (0.1-1.0); MONO % 6.5 % (3.0-9.0); NEUT # 4.7 10*3/uL (2.3-7.9); NEUT % 74.3 % (47.0-73.0); PLATELET COUNT AUTOMATED 237 10*3/uL (130-400); RED CELL DISTRI WIDTH 13.3 % (0-14.5); WHITE BLOOD COUNT 6.3 10*3/uL (4.8-10.8)
[2022-08-10 12:05] LABS: ALKALINE PHOSPHATASE 100 U/L (46-116); BUN 9 mg/dl (9-23); CHLORIDE 100 mmol/L (98-107); CHOLESTEROL 97 mg/dL (<200); FREE T4 1.36 ng/dl (0.89-1.76); LDL CHOLESTEROL 51 mg/dL (9-159); SGPT/ALT 12 U/L (10-49); TOTAL PROTEIN 6.5 gm/dL (6.0-8.0); TRIGLYCERIDES 91 mg/dl (<150)
[2022-08-10 12:06] LABS: VITAMIN D, 25-HYDROXY 80.6 ng/mL (30-100)
[2022-08-10 12:16] LABS: THYROID STIM HORMONE (HS) 7.023 uIU/ml (0.550-4.780)
== END | disposition home or self-care (01) ==
LOC: RAD 08-03 14:00 → LAB 01:31 → RAD 10:00
PROVIDERS: ATTEND Internal Medicine
DX: Z13.0 Encounter for screening for diseases of the blood and blood-forming organs and certain disorders involving the immune mechanism (principal); E11.9 Type 2 diabetes mellitus without complications; E03.9 Hypothyroidism, unspecified; I10 Essential (primary) hypertension; D50.8 Other iron deficiency anemias; Z13.1 Encounter for screening for diabetes mellitus; Z13.220 Encounter for screening for lipoid disorders; Z13.228 Encounter for screening for other metabolic disorders; Z13.6 Encounter for screening for cardiovascular disorders; Z13.29 Encounter for screening for other suspected endocrine disorder; Z13.89 Encounter for screening for other disorder; Z13.9 Encounter for screening, unspecified; M85.852 Other specified disorders of bone density and structure, left thigh; M81.0 Age-related osteoporosis without current pathological fracture

== ENCOUNTER 2022-12-22 23:07 | Inpatient (IN) | payer OTHER ==
[~2022-12-22] VITALS: Ht 157.4 cm; Wt 68.7 kg
[~2022-12-22 23:07] MED LIST changes: +ALENDRONATE SOD70 M1 PO; +GLIMEPIRIDE4 M1 PO; +LANTUS SOL100 UNIT/1 SC; +LEVOFLOXACIN500 MG PO; +LISINOPRIL40 MG PO; +NEXIUM40 MG PO; +OYSTER SHELL C1 EAC9 PO
[2022-12-22 23:25] VITALS: BP 101/46
[2022-12-23 00:16] LABS: BASO % 0.3 % (0.0-1.0); EOS % 0.4 % (1.0-4.0); HEMATOCRIT 39.4 % (37.0-47.0); LYMPH % 10.4 % (27.0-41.0); MEAN CELL VOLUME 86.2 fl (81.0-99.0); MEAN CORPUSCULAR HGB 28.7 pg (27.0-31.0); MEAN CORPUSCULAR HGB CONC 33.2 g/dl (33.0-37.0); MEAN PLATELET VOLUME 9.5 fl (9.6-12.3); MONO % 10.6 % (3.0-9.0); NEUT # 7.7 10*3/uL (2.3-7.9); PLATELET COUNT AUTOMATED 394 10*3/uL (130-400); RED BLOOD COUNT 4.57 10*6/uL (4.10-5.10); RED CELL DISTRI WIDTH 13.3 % (0-14.5); WHITE BLOOD COUNT 9.8 10*3/uL (4.8-10.8)
[2022-12-23 00:37] LABS: ALKALINE PHOSPHATASE 75 U/L (46-116); BUN 19 mg/dl (9-23); CHLORIDE 98 mmol/L (98-107); POTASSIUM 4.3 mmol/L (3.4-5.1); TOTAL PROTEIN 6.2 gm/dL (6.0-8.0)
[2022-12-23 00:38] LABS: BILIRUBIN Negative (Negative); BLOOD Negative (Negative); CLARITY Clear (Clear); COLOR Yellow (Yellow); GLUCOSE Negative (Negative); KETONE Negative (Negative); LEUKO ESTERASE 1+ (Negative); NITRITE Negative (Negative); PH 5.5 (4.5-8.0)
[2022-12-23 00:42] LABS: SGPT/ALT < 7 U/L (10-49)
[2022-12-23 01:49] LABS: BACTERIA 1+; EPITHELIAL CELLS 41-50
[2022-12-23] MEDS ORDERED: VITAMIN D 1.25 MG (02:04)
[2022-12-23 06:56] VITALS: BP 101/47
[2022-12-23 09:16] VITALS: BP 107/39
[2022-12-23 15:02] VITALS: BP 102/46
[2022-12-23 22:00] VITALS: BP 141/58
[2022-12-24 04:10] VITALS: BP 135/51
[2022-12-24 07:01] LABS: BASO % 0.6 % (0.0-1.0); EOS # 0.3 10*3/uL (0.0-0.4); HEMATOCRIT 31.6 % (37.0-47.0); LYMPH # 0.9 10*3/uL (1.3-4.4); LYMPH % 17.9 % (27.0-41.0); MEAN CORPUSCULAR HGB CONC 32.6 g/dl (33.0-37.0); MEAN PLATELET VOLUME 9.8 fl (9.6-12.3); MONO # 0.5 10*3/uL (0.1-1.0); MONO % 10.3 % (3.0-9.0); NEUT # 3.3 10*3/uL (2.3-7.9); RED BLOOD COUNT 3.55 10*6/uL (4.10-5.10); RED CELL DISTRI WIDTH 13.2 % (0-14.5); WHITE BLOOD COUNT 5.1 10*3/uL (4.8-10.8)
[2022-12-24 07:03] LABS: PLATELET COUNT AUTOMATED 258 10*3/uL (130-400)
[2022-12-24 07:15] LABS: BUN 14 mg/dl (9-23); CHLORIDE 106 mmol/L (98-107)
[2022-12-24 07:16] LABS: POTASSIUM 3.3 mmol/L (3.4-5.1)
[2022-12-24 08:00] VITALS: BP 121/57
[2022-12-24 16:00] VITALS: BP 152/56
[2022-12-24 20:00] VITALS: BP 152/74
[2022-12-25] VITALS: BP 151/83
[2022-12-25 07:29] LABS: BASO % 0.8 % (0.0-1.0); EOS # 0.3 10*3/uL (0.0-0.4); EOS % 4.7 % (1.0-4.0); HEMATOCRIT 32.5 % (37.0-47.0); LYMPH # 0.8 10*3/uL (1.3-4.4); LYMPH % 14.1 % (27.0-41.0); MEAN CELL VOLUME 87.4 fl (81.0-99.0); MEAN CORPUSCULAR HGB CONC 33.2 g/dl (33.0-37.0); MEAN PLATELET VOLUME 9.4 fl (9.6-12.3); MONO # 0.5 10*3/uL (0.1-1.0); MONO % 9.2 % (3.0-9.0); NEUT # 3.8 10*3/uL (2.3-7.9); NEUT % 70.6 % (47.0-73.0); PLATELET COUNT AUTOMATED 239 10*3/uL (130-400); RED BLOOD COUNT 3.72 10*6/uL (4.10-5.10); RED CELL DISTRI WIDTH 12.8 % (0-14.5); WHITE BLOOD COUNT 5.3 10*3/uL (4.8-10.8)
[2022-12-25 07:58] LABS: CHLORIDE 104 mmol/L (98-107); POTASSIUM 3.9 mmol/L (3.4-5.1)
[2022-12-25 08:00] VITALS: BP 151/64
[2022-12-25 08:10] LABS: BUN < 5 mg/dl (9-23)
[2022-12-25 12:00] VITALS: BP 182/60
[2022-12-25 16:00] VITALS: BP 137/53
[2022-12-25 20:00] VITALS: BP 140/61
[2022-12-26] VITALS: BP 156/66
[2022-12-26 07:24] LABS: BASO % 0.7 % (0.0-1.0); EOS # 0.3 10*3/uL (0.0-0.4); EOS % 4.6 % (1.0-4.0); HEMATOCRIT 32.3 % (37.0-47.0); LYMPH # 0.7 10*3/uL (1.3-4.4); LYMPH % 12.7 % (27.0-41.0); MEAN CORPUSCULAR HGB CONC 32.2 g/dl (33.0-37.0); MEAN PLATELET VOLUME 9.5 fl (9.6-12.3); MONO # 0.4 10*3/uL (0.1-1.0); MONO % 6.6 % (3.0-9.0); NEUT # 4.2 10*3/uL (2.3-7.9); NEUT % 74.5 % (47.0-73.0); PLATELET COUNT AUTOMATED 238 10*3/uL (130-400); RED BLOOD COUNT 3.59 10*6/uL (4.10-5.10); RED CELL DISTRI WIDTH 12.9 % (0-14.5); WHITE BLOOD COUNT 5.6 10*3/uL (4.8-10.8)
[2022-12-26 07:58] LABS: ALKALINE PHOSPHATASE 70 U/L (46-116); BUN 7 mg/dl (9-23); CHLORIDE 104 mmol/L (98-107); POTASSIUM 4.5 mmol/L (3.4-5.1); TOTAL PROTEIN 5.1 gm/dL (6.0-8.0)
[2022-12-26 08:00] VITALS: BP 152/70
[2022-12-26 08:05] LABS: SGPT/ALT < 7 U/L (10-49)
[2022-12-26] MEDS ORDERED: GLIMEPIRIDE4 M1 PO ×2 (08:25→08:28)
[2022-12-26] MEDS ORDERED: ONDANSETRON ODT8 MG PO (08:26)
== END 2022-12-26 10:20 | disposition home or self-care (01) | DRG 389 ==
LOC: ED 23:07 → 5E 12-23 02:21 → EDHOLD 12-23 02:21 → 4E 12-23 02:21 → EDHOLD 12-23 08:44 → 4E 12-24 03:54 → 5E 12-24 15:19
PROVIDERS: Emergency Medicine; ADMIT Internal Medicine; ATTEND Internal Medicine
PROC: 0D9670Z Drainage of Stomach with Drainage Device, Via Natural or Artificial Opening (ICD-10-PCS; principal; 2022-12-23)
DX: K56.7 Ileus, unspecified (principal); E44.1 Mild protein-calorie malnutrition; F33.0 Major depressive disorder, recurrent, mild; E87.1 Hypo-osmolality and hyponatremia; K56.600 Partial intestinal obstruction, unspecified as to cause; R73.9 Hyperglycemia, unspecified; I10 Essential (primary) hypertension; E78.2 Mixed hyperlipidemia; E03.9 Hypothyroidism, unspecified; M81.0 Age-related osteoporosis without current pathological fracture; G89.29 Other chronic pain; M54.50 Low back pain, unspecified; E87.6 Hypokalemia; M32.9 Systemic lupus erythematosus, unspecified; R62.7 Adult failure to thrive; Z90.710 Acquired absence of both cervix and uterus; Z90.49 Acquired absence of other specified parts of digestive tract; Z68.29 Body mass index [BMI] 29.0-29.9, adult

== ENCOUNTER → 2023-01-23 | Outpatient (CLI) | payer OTHER ==
[~2023-01-23] MED LIST changes: +ONDANSETRON ODT8 MG PO; +VITAMIN D 1.25 MG
== END | disposition home or self-care (01) ==
LOC: CARD 00:19
PROVIDERS: ATTEND Internal Medicine
DX: I45.10 Unspecified right bundle-branch block (principal); R94.31 Abnormal electrocardiogram [ECG] [EKG]; I24.81 Acute coronary microvascular dysfunction; R79.89 Other specified abnormal findings of blood chemistry; R53.81 Other malaise

== ENCOUNTER 2023-08-13 05:04 | Emergency (ER) | payer OTHER ==
[~2023-08-13] VITALS: Ht 152.4 cm; Wt 63.2 kg
[2023-08-13 05:52] LABS: BUN 11 mg/dl (9-23); CHLORIDE 100 mmol/L (98-107); POTASSIUM 3.6 mmol/L (3.4-5.1)
[2023-08-13] MEDS ORDERED: FERROUS GLUCON324 MG PO (05:53)
[2023-08-13] MEDS ORDERED: OXYCODONE HCL5 MG PO (05:57)
[2023-08-13] MEDS ORDERED: CAPECITABINE500 MG PO (05:57)
[2023-08-13 06:01] LABS: BASO # 0.1 10*3/uL (0.0-0.1); BASO % 0.7 % (0.0-1.0); EOS # 0.1 10*3/uL (0.0-0.4); HEMATOCRIT 34.3 % (37.0-47.0); LYMPH # 0.5 10*3/uL (1.3-4.4); MEAN CELL VOLUME 102.4 fl (81.0-99.0); MEAN CORPUSCULAR HGB 33.1 pg (27.0-31.0); MEAN CORPUSCULAR HGB CONC 32.4 g/dl (33.0-37.0); MEAN PLATELET VOLUME 10.2 fl (9.6-12.3); MONO # 0.9 10*3/uL (0.1-1.0); MONO % 7.4 % (3.0-9.0); NEUT # 9.8 10*3/uL (2.3-7.9); NEUT % 84.8 % (47.0-73.0); PLATELET COUNT AUTOMATED 241 10*3/uL (130-400); RED BLOOD COUNT 3.35 10*6/uL (4.10-5.10); RED CELL DISTRI WIDTH 18.7 % (0-14.5); WHITE BLOOD COUNT 11.6 10*3/uL (4.8-10.8)
[2023-08-13 06:49] VITALS: BP 152/48
== END 2023-08-13 06:59 | disposition home or self-care (01) ==
LOC: ED 05:04
PROVIDERS: Internal Medicine
DX: S51.001A Unspecified open wound of right elbow, initial encounter (principal); C78.7 Secondary malignant neoplasm of liver and intrahepatic bile duct; C18.9 Malignant neoplasm of colon, unspecified; M54.50 Low back pain, unspecified; M54.2 Cervicalgia; R53.1 Weakness; R73.9 Hyperglycemia, unspecified; D53.9 Nutritional anemia, unspecified; Z85.038 Personal history of other malignant neoplasm of large intestine; Z79.899 Other long term (current) drug therapy; Z79.4 Long term (current) use of insulin; Z90.711 Acquired absence of uterus with remaining cervical stump; Z90.49 Acquired absence of other specified parts of digestive tract; W18.39XA Other fall on same level, initial encounter; Y93.89 Activity, other specified; Y92.89 Other specified places as the place of occurrence of the external cause; Y99.8 Other external cause status

== ENCOUNTER 2023-09-04 15:50 | Inpatient (IN) | payer OTHER ==
[~2023-09-04 15:50] MED LIST changes: +AMLODIPINE BES2.5 MG PO; +AMOX-CLAV 875-1 EACH PO; +APLISOL5 TUB UNIT INTRADERM; +CAPECITABINE500 MG PO; +CATAPRES-TTS 31 EACH TD; +CEFUROXIME AXE250 MG PO; +FERROUS GLUCON324 MG PO; +HUMALOG100 UNIT/2 SQ; +Ipratropium Brom3 ML INH; +Ipratropium Brom3 ML NEB; +LEVOTHYROXINE125 MCG PO; +LIPITOR20 MG PO; +OXYCODONE HCL5 MG PO; +SYNTHROID,LEV125 MCG PO; +Synthroid,Lev125 MCG PO; -Synthroid,Lev150 MCG PO; +VITAMIN D310 MCG GT; +VITAMIN D31250 MCG PO; +VITAMIN D325 MC1 PO; +XELODA500 MG PO; +ZITUVIO100 MG PO; +[UNRECOGNIZED DRUG - OTHER] PO
[2023-09-04 16:00] VITALS: BP 123/99
[2023-09-04] MEDS ORDERED: DIAZEPAM 10 MG/2 ML SYR IV PRN (16:05)
[2023-09-04] MEDS ORDERED: MORPHINE Sulfate 2 MG/ML SYR IV PRN (16:05)
[2023-09-04] MEDS ORDERED: ATROPINE SULFATE 1% 2 ML BOTTLE SL SCH (16:16)
[2023-09-04] MEDS ORDERED: MORPHINE Sulfate 50 MG in SODIUM CHLORIDE 0.9% 45 ML IV SCH (17:00)
[2023-09-04 20:00] VITALS: BP 122/49
[2023-09-05] VITALS: BP 103/59
[2023-09-05 08:00] VITALS: BP 73/46
[2023-09-05] MEDS ORDERED: MORPHINE Sulfate 2 MG/ML SYR IV PRN (08:37)
[2023-09-05] MEDS ORDERED: MORPHINE Sulfate 100 MG in SODIUM CHLORIDE 0.9% 90 ML IV SCH (11:30)
[2023-09-05 16:00] VITALS: BP 82/45
[2023-09-05 20:00] VITALS: BP 93/80
[2023-09-06 00:07] VITALS: BP 87/69
== END 2023-09-06 05:24 | DRG 375 ==
LOC: 4E 15:50
PROVIDERS: ADMIT Internal Medicine; ATTEND Internal Medicine
DX: C18.6 Malignant neoplasm of descending colon (principal); C78.7 Secondary malignant neoplasm of liver and intrahepatic bile duct; Z51.5 Encounter for palliative care; I10 Essential (primary) hypertension; E11.9 Type 2 diabetes mellitus without complications; J44.9 Chronic obstructive pulmonary disease, unspecified; E78.00 Pure hypercholesterolemia, unspecified; F32.A Depression, unspecified; Z66 Do not resuscitate